=== PATIENT | male | born 1955 | race Caucasian/White ===

== ENCOUNTER 2016-11-16 09:49 | Inpatient (IN) | payer OTHER ==
[2016-11-16] MEDS ORDERED: PANTOPRAZOLE 40 MG/10 ML VIAL IVP STA (11:00)
[2016-11-16] MEDS ORDERED: AMPICILLIN-SULBACTAM 3 GM in SODIUM CHLORIDE 0.9% 100 ML IVPB STA (11:00)
[2016-11-16] MEDS ORDERED: SODIUM CHLORIDE 0.9% 1,000 ML IV STA ×2 (11:00)
--- NOTE | 2016-11-16 11:10 | ED ---
General Adult HPI - General Chief complaint: Abdominal Pain Stated complaint: Abdominal Pain Time Seen by Provider: 11/16/16 10:23 Source: patient, family, RN notes reviewed, old records reviewed Mode of arrival: EMS Limitations: no limitations - History of Present Illness Initial comments: This is a 61-year-old male ER for evaluation of bowel pain. [facility] of Cholecystitis This Compcare or Pancreatitis. Patient Is Brought to Emergency Room Transfer, This Time in No Acute Distress. Patient's Poor Strain Secondary to Inability to Speak Secondary to Stroke, History Obtained from Patient's Chart and Family Members. At This Time Patient's Pain Is Controlled. No Fevers. No Nausea Vomiting - Related Data Home Medications Medication Instructions Recorded Confirmed Aspirin 81 mg PO DAILY 11/16/16 11/16/16 Atorvastatin Calcium [Lipitor] 40 mg PO HS 11/16/16 11/16/16 Citalopram Hydrobromide [CeleXA] 10 mg PO DAILY 11/16/16 11/16/16 Clopidogrel Bisulfate [Plavix] 75 mg PO DAILY 11/16/16 11/16/16 Hydrochlorothiazide 25 mg PO DAILY 11/16/16 11/16/16 Metoprolol Succinate (ER) [Toprol 25 mg PO DAILY 11/16/16 11/16/16 Xl] levETIRAcetam [Keppra] 500 mg PO Q12HR 11/16/16 11/16/16 Allergies Allergy/AdvReac Type Severity Reaction Status Date / Time No Known Allergies Allergy Unverified 11/16/16 10:34 Review of Systems ROS Statement: Those systems with pertinent positive or pertinent negative responses have been documented in the HPI. ROS Other: All systems not noted in ROS Statement are negative. Past Medical History Past Medical History: CVA/TIA, Hypertension, Seizure Disorder History of Any Multi-Drug Resistant Organisms: None Reported Additional Past Surgical History / Comment(s): open heart surgery 12 years. stents Past Psychological History: No Psychological Hx Reported Smoking Status: Never smoker Past Alcohol Use History: None Reported Past Drug Use History: None Reported General Exam Limitations: no limitations General appearance: alert, in no apparent distress Head exam: Present: atraumatic, normocephalic, normal inspection Eye exam: Present: normal appearance, PERRL, EOMI. Absent: scleral icterus, conjunctival injection, periorbital swelling ENT exam: Present: normal exam, mucous membranes moist Neck exam: Present: normal inspection. Absent: tenderness, meningismus, lymphadenopathy Respiratory exam: Present: normal lung sounds bilaterally. Absent: respiratory distress, wheezes, rales, rhonchi, stridor Cardiovascular Exam: Present: regular rate, normal rhythm, normal heart sounds. Absent: systolic murmur, diastolic murmur, rubs, gallop, clicks GI/Abdominal exam: Present: soft, normal bowel sounds. Absent: distended, tenderness, guarding, rebound, rigid Extremities exam: Present: normal inspection, full ROM, normal capillary refill. Absent: tenderness, pedal edema, joint swelling, calf tenderness Back exam: Present: normal inspection Neurological exam: Present: alert, oriented X3, CN II-XII intact Psychiatric exam: Present: normal affect, normal mood Skin exam: Present: warm, dry, intact, normal color. Absent: rash Course Vital Signs 11/16/16 09:54 Temperature 98.0 F Pulse Rate 62 Respiratory 20 Rate Blood Pressure 172/121 O2 Sat by Pulse 100 Oximetry - Reevaluation(s) Reevaluation #1: 11/16/16 11:09 Going to patient's transfer paperwork, lab results and ultrasound Medical Decision Making - Medical Decision Making 61 male here for evaluation of pancreatitis complicated with cholecystitis, patient will be admitted for evaluation by surgery and treatment Disposition Clinical Impression: Abdominal pain, Acute cholecystitis, Pancreatitis Disposition: ADMITTED IP TO THIS [facility] Condition: Fair Referrals: Noel Garcia MD [Primary Care Provider] - 1-2 days
[2016-11-16 11:18] LABS: Basophils # (A) 0.1 k/uL (0-0.2); Basophils % (A) 1 %; CH 32.2; CHCM 34.4; Eosinophils # (A) 0.2 k/uL (0-0.7); Eosinophils % (A) 2 %; HCT 41.1 % (39.0-53.0); HDW 2.63; Luc # (Auto) 0.14; Luc % (Auto) 2; Lymphocytes % (A) 27 %; Monocytes # (A) 0.4 k/uL (0-1.0); Monocytes % (A) 6 %; Neutrophils # (A) 4.4 k/uL (1.3-7.7); Neutrophils % (A) 61 %; RBC 4.37 m/uL (4.30-5.90); RDW 13.8 % (11.5-15.5); WBC 7.2 k/uL (3.8-10.6); WBC (Perox) 7.32
[2016-11-16 11:25] LABS: Anion Gap 10 mmol/L; Blood Urea Nitrogen 22 mg/dL (9-20); Carbon Dioxide 29 mmol/L (22-30); Chloride 105 mmol/L (98-107); Glucose 91 mg/dL (74-99); Potassium 4.5 mmol/L (3.5-5.1); Sodium 144 mmol/L (137-145)
[2016-11-16 11:26] LABS: ALT 50 U/L (21-72); AST 27 U/L (17-59); Alkaline Phosphatase 95 U/L (38-126); Amylase 56 U/L (30-110); Calcium 9.1 mg/dL (8.4-10.2); Non-African American GFR(MDRD) >60 (>60 ml/min/1.73 sqM); Total Bilirubin 0.4 mg/dL (0.2-1.3); Total Protein 7.3 g/dL (6.3-8.2)
[2016-11-16 11:38] LABS: INR 1.1 (<1.1); Partial Thromboplastin Time 24.5 sec (22.0-30.0); Prothrombin Time 10.9 sec (9.0-12.0)
[2016-11-16 11:53] LABS: Creatine Kinase MB 0.8 ng/mL (0.0-2.4); Troponin I 0.012 ng/mL (0.000-0.034)
[2016-11-16] MEDS: MORPHINE SULFATE 4 MG/ML SYRINGE IV SCH ×3 (13:38→21:39)
[2016-11-16] MEDS: ONDANSETRON 4 MG/2 ML VIAL IVP SCH ×2 (13:38→18:53)
--- NOTE | 2016-11-16 13:58 | P.HPIM ---
History of Present Illness H&P Date: 11/16/16 Chief Complaint: Sudden onset epigastric pain 61-year-old gentleman who was a transfer to [facility] emergency room from [facility] patient was being seen in [facility] for an acute episode of sudden onset epigastric pain. Patient family is at the bedside indicated that the patient woke up around 4 in the morning indicating he was having pain in his upper abdomen. Patient is a phasic from a prior CVA that occurred in 2013. Patient's family stated that he kept pointing to his abdomen as to the reference point patient lives with his parents. The parents are at the bedside may indicate the patient has been fairly independent after having a stroke in 2013 which did result in the patient being aphasic with right side weakness. To their knowledge the patient has not had prior episodes of epigastric pain no change in bowel habits no nausea vomiting. Patient has no significant history of tobacco or alcohol abuse. Patient was seen in the emergency room at [place] had an ultrasound done that showed dilated gallbladder multiple gallstones no wall thickening. Sludge noted but there was no common bile duct dilatation.. The patient also had a CAT scan of the abdomen pelvis without contrast that showed questionable gallstones patient in the emergency room [place] was started on IV fluid the potassium which was 3.4 was being replaced it's noted reviewing the labs that were obtained in [place] lipase was elevated to 532 which currently it's down to 125 amylase 117 and the AST 30 ALT 40 alk phos 104 and the total bili 0.9. Currently the patient does not appear in any distress. When asking patient if he is having any pain patient nods his head no Patient indicates that since being admitted to [facility] patient has been pain-free no abdominal pain no chest pain no epigastric pain symptoms completely resolved Patient does give a history of eating a lot of fast fatty foods for convenience Patient does have a significant past medical history of coronary artery disease with an NH and coronary artery bypass grafting 12 years prior. Additionally patient has had a stroke in 2014 did result in the a phasic speech in the right arm weakness. Did note the patient is on Plavix according to the parents patient took no medications this morning but did take his medication yesterday including Plavix Addition the patient does give a history of a seizure disorder according to the family his last seizure was 4 months prior is on Keppra. Patient currently is resting comfortably in bed appears well-hydrated and nontoxic and appears in no acute distress Review of Systems Essentially unremarkable except as mentioned in the present illness Past Medical History Past Medical History: CVA/TIA, Hypertension, Seizure Disorder History of Any Multi-Drug Resistant Organisms: None Reported Additional Past Surgical History / Comment(s): open heart surgery 12 years. stents Past Psychological History: No Psychological Hx Reported Smoking Status: Never smoker Past Alcohol Use History: None Reported Past Drug Use History: None Reported - Past Family History Father Family Medical History: Hyperlipidemia, Hypertension, Osteoarthritis (OA) Additional Family Medical History / Comment(s): Father is 87yrs old. Mother Family Medical History: Asthma, Diabetes Mellitus, Hyperlipidemia Medications and Allergies Home Medications Medication Instructions Recorded Confirmed Type Aspirin 81 mg PO DAILY 11/16/16 11/16/16 History Atorvastatin Calcium [Lipitor] 40 mg PO HS 11/16/16 11/16/16 History Citalopram Hydrobromide [CeleXA] 10 mg PO DAILY 11/16/16 11/16/16 History Clopidogrel Bisulfate [Plavix] 75 mg PO DAILY 11/16/16 11/16/16 History Hydrochlorothiazide 25 mg PO DAILY 11/16/16 11/16/16 History Metoprolol Succinate (ER) [Toprol 25 mg PO DAILY 11/16/16 11/16/16 History Xl] levETIRAcetam [Keppra] 500 mg PO Q12HR 11/16/16 11/16/16 History Allergies Allergy/AdvReac Type Severity Reaction Status Date / Time No Known Allergies Allergy Unverified 11/16/16 10:34 Physical Exam Vitals: Vital Signs Pulse Resp BP Pulse Ox 11/16/16 11:22 60 20 129/67 99 GENERAL APPEARANCE: 61-year-old male patient is alert, oriented, 3 in no acute distress. Is aphasic nontoxic well-hydrated well-nourished VITAL SIGNS: Reviewed HEENT: Head is normocephalic and atraumatic. Pupils are equal and reactive. The nares are patent. Oropharynx is clear without lesions. NECK: Supple without lymphadenopathy. Traches midline. HEART: S1, S2. Regular rate and rhythm. Denying chest pain LUNGS: No crackles or wheezes are heard. On room air adequate air movement bilaterally no wheezing no cough no use of accessory muscles to breathe ABDOMEN: Soft, nontender, nondistended with good bowel sounds. No peritoneal signs. No palpable organomegaly or masses no facial grimacing with palpitation to the abdominal wall. EXTREMITIES: Normal skin color and turgor. No cyanosis, rash, ulceration, clubbing or edema. Radial pedal pulses are 2/4 bilaterally. 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 Skin no evidence of a skin rash Results CBC & Chem 7: 11/16/16 10:15 11/16/16 10:15 Assessment and Plan Plan: Impression Present on admission sudden onset of acute epigastric pain with elevated lipase and amylase Ultrasound of the abdomen dilated gallbladder multiple gallstones no wall thickening noted likely due to cholelithiasis Stroke in 2013 resulting in aphasia with chronic right hand weakness Known coronary artery disease with prior coronary artery bypass grafting 12 years prior History of a seizure disorder last seizure 4 months ago on Kera 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 Present on admission elevated lipase and amylase likely due to acute pancreatitis Prior to admission electrolyte abnormality hypokalemic Plan The repeat potassium 4.5 now after replacement remove potassium from the IV Repeat labs in the morning Hold Plavix and aspirin for now DVT and GI prophylaxis Further recommendations pending Resume home meds as appropriate Await cardiology eval currently pending Patient would be at a high risk for a surgical intervention given patient's cardiac history and stroke The above dictated assessment and findings were discussed with dr Mcdaniels Impression and the plan of care have been dictated as directed. Erna Oropeza nurse practitioner acting as a scribe for Enedelia
[2016-11-16] MEDS ORDERED: AMPICILLIN-SULBACTAM 3 GM in SODIUM CHLORIDE 0.9% 100 ML IVPB SCH (18:00)
[2016-11-16 18:17] LABS: Appearance,Urine Clear (Clear); Bilirubin,Urine Negative (Negative); Glucose,Urine (UA) Negative (Negative); Ketones,Urine Negative (Negative); Leukocyte Esterase,Urine Negative (Negative); Nitrite,Urine Negative (Negative); PH, Urine 5.5 (5.0-8.0); Protein,Urine Negative (Negative); Specific Gravity,Urine 1.026 (1.001-1.035); UA Billing (MACRO vs. MICRO) CHEM; Urobilinogen,Urine <2.0 mg/dL (<2.0)
--- NOTE | 2016-11-16 20:00 | P.GSHP ---
History of Present Illness H&P Date: 11/16/16 Chief Complaint: Gallstone pancreatitis Please see nurse practitioner note, Erna Oropeza for additional details. I had the opportunity discuss the patient's level of care with his mother. She reports that he often eat fatty and cheesy foods. Prior to presentation at [facility], he had no specific complaints to his mother. With his history of stroke with aphasia, additional history is obtained via medical records including the patient's family. At the time of his transfer to the [place], his abdominal pain is completely resolved. With his high cardiac risks, cardiology has been consult. At this time, Plavix and aspirin has been held. - Review of Systems Comment: CONSTITUTIONAL: No fever or chills. HEENT: No trouble with hearing or nosebleeds. No difficulty swallowing. He is aphasic. He wears glasses. LYMPHATIC: No lumps and bumps around the neck. ENDOCRINE: No thyroid disorders. No blood sugar glucose intolerance. RESPIRATORY: No pneumonia. No troubles with breathing or dyspnea on exertion. CARDIOVASCULAR: No recent chest pain, palpitations, or recent heart attacks. Previous history of heart attack. GASTROINTESTINAL: No heart burn, constipation or bright red blood per rectum. GENITOURINARY: No blood in urine or increased urinary frequency. MUSCULOSKELETAL: Occassional back pain, stiffness or joint arthritis. NEUROLOGIC: No numbness or tingling along the distal extremities. Has seizure disorders or headaches. History of stroke with aphasia. PSYCHIATRIC: No depression or suidical ideation. HEMATOLOGIC: Denies any abnormal bleeding or bruising. Past Medical History Past Medical History: CVA/TIA, Hypertension, Seizure Disorder Additional Past Medical History / Comment(s): 2013 CVA-able to speak very little , R arm weakness, minimal R leg weakness, bilateral caratid dx with bilateral stents, last seizure 4 months ago, Last Myocardial Infarction Date:: ?2003 History of Any Multi-Drug Resistant Organisms: None Reported Past Surgical History: Coronary Bypass/CABG, Tonsillectomy Additional Past Surgical History / Comment(s): open heart surgery 12 years. stents Past Anesthesia/Blood Transfusion Reactions: No Reported Reaction Past Psychological History: No Psychological Hx Reported Smoking Status: Never smoker Past Alcohol Use History: None Reported Additional Past Alcohol Use History / Comment(s): Pt started smoking as a teen and quit in 2013. Pt lives with his parents. He is independent. He drives. Past Drug Use History: None Reported - Past Family History Father Family Medical History: Hyperlipidemia, Hypertension, Osteoarthritis (OA) Additional Family Medical History / Comment(s): Father is 87yrs old. Mother Family Medical History: Asthma, Diabetes Mellitus, Hyperlipidemia Medications and Allergies Home Medications Medication Instructions Recorded Confirmed Type Aspirin 81 mg PO DAILY 11/16/16 11/16/16 History Atorvastatin Calcium [Lipitor] 40 mg PO HS 11/16/16 11/16/16 History Citalopram Hydrobromide [CeleXA] 10 mg PO DAILY 11/16/16 11/16/16 History Clopidogrel Bisulfate [Plavix] 75 mg PO DAILY 11/16/16 11/16/16 History Hydrochlorothiazide 25 mg PO DAILY 11/16/16 11/16/16 History Metoprolol Succinate (ER) [Toprol 25 mg PO DAILY 11/16/16 11/16/16 History Xl] levETIRAcetam [Keppra] 500 mg PO Q12HR 11/16/16 11/16/16 History Allergies Allergy/AdvReac Type Severity Reaction Status Date / Time No Known Allergies Allergy Unverified 11/16/16 10:34 Surgical - Exam Vital Signs Temp Pulse Resp BP Pulse Ox 98.0 F 62 20 172/121 100 11/16/16 09:54 11/16/16 09:54 11/16/16 09:54 11/16/16 09:54 11/16/16 09:54 GENERAL: Well developed and in no acute distress. Pleasant. HEENT: No sclera icterus. Extraocular movements grossly intact. Moist buccal mucosa. Head is atraumatic, normocephalic. Hears conversational speech. No nasal drainage. NECK: Supple without lymphadenopathy. No JV distention. CHEST: Non-labored respirations and equal bilateral excursions. CARDIOVASCULAR: Regular rate and rhythm. Palpable 2+ radial pulses. ABDOMEN: Soft, nontender. Nondistended. No abdominal incisions. MUSCULOSKELETAL: No clubbing, cyanosis or edema. NEUROLOGIC: No focal or lateralizing signs. He is aphasic. PSYCH: Appropriate affect. Alert and oriented to person, place and time. Results - Labs 11/17/16 10:31 11/17/16 10:31 - Imaging Additional studies: Outside images reviewed with ultrasound consistent with gallstones. CT of the abdomen and pelvis also reviewed without lesions along the pancreas. 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 As he is on Plavix and aspirin, surgical intervention with laparoscopic cholecystectomy will be delayed. 2. Recommend cardiology evaluation with personal history of stroke including heart attack. 3. Repeat chemistries. 4. Low-fat diet advised.
[2016-11-16] MEDS ORDERED: HYDROmorphone 1 MG/ML 1 ML SYRINGE IVP PRN (20:15)
[2016-11-16] MEDS ORDERED: METOCLOPRAMIDE 5 MG/ML 2 ML VIAL IVP PRN (20:16)
[2016-11-16] MEDS ORDERED: PANTOPRAZOLE 40 MG/10 ML VIAL IVP SCH (21:00)
[2016-11-16] MEDS: levETIRAcetam 500 MG TAB PO SCH (21:42)
[2016-11-16] MEDS: ATORVASTATIN 40 MG TAB PO SCH (21:44)
[2016-11-17] MEDS: CITALOPRAM HYDROBROMIDE 10 MG TAB PO SCH (08:34)
[2016-11-17] MEDS: HYDROCHLOROTHIAZIDE 25 MG TAB PO SCH ×2 (08:34→08:35)
[2016-11-17] MEDS: METOPROLOL SUCCINATE (ER) 25 MG TAB.ER.24H PO SCH ×2 (08:34→08:35)
[2016-11-17] MEDS: levETIRAcetam 500 MG TAB PO SCH ×2 (08:34→20:16)
--- NOTE | 2016-11-17 09:55 | P.PN ---
Subjective Principal diagnosis: Gallstone pancreatitis No abdominal pain, nausea, or vomiting. Patient communicates with hand gestures due to aphasia. He is pending cardiology consultation. He has a high risk stroke history as well. Objective - Vital Signs Vital signs: Vital Signs Temp 97.1 F L 11/17/16 07:00 Pulse 53 L 11/17/16 07:00 Resp 18 11/17/16 07:00 BP 98/54 11/17/16 07:00 Pulse Ox 97 11/17/16 07:00 Intake & Output 11/16/16 11/17/16 11/17/16 18:59 06:59 18:59 Intake Total 340 Balance 340 Intake: Oral 340 - Exam GENERAL: Well developed and in no acute distress. Pleasant. HEENT: No sclera icterus. Extraocular movements grossly intact. Moist buccal mucosa. Head is atraumatic, normocephalic. Hears conversational speech. No nasal drainage. NECK: Supple without lymphadenopathy. No JV distention. CHEST: Non-labored respirations and equal bilateral excursions. CARDIOVASCULAR: Regular rate and rhythm. Palpable 2+ radial pulses. ABDOMEN: Soft, nontender. Nondistended. MUSCULOSKELETAL: No clubbing, cyanosis or edema. NEUROLOGIC: No focal or lateralizing signs. He is aphasic. PSYCH: Appropriate affect. 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 Plan for cardiology. 2. Get carotid studies. 3. Plavix and Aspirin held. 4. 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
--- NOTE | 2016-11-17 10:42 | P.PN ---
Subjective 61-year-old gentleman being seen on rounds this morning is currently resting comfortably in bed. Patient is able to communicate with hand gestures due to aphasia when questioning patient patient is denying any abdominal pain denying chest pain denying shortness of breath. There's been no nausea vomiting. No abdominal pain since admission. Patient indicates he is fine a cardiology consultation is pending. Labs this morning pending Hospital course This is a 61-year-old gentleman who was transferred [facility] to [facility] to be evaluated for chief complaint of developing a sudden onset of epigastric pain. Patient reportedly woke up around 4:00 in the morning with the epigastric pain presented to [facility] emergency room noted to have an elevated lipase and amylase. Patient does have a significant past medical history of coronary artery disease and prior stroke resulting in aphasia. Patient was seen in [facility] recommendations were to transfer patient to the clinic in [place] for further workup at the time of the transfer patient was completely pain free the abdominal pain had resolved patient was denying chest pain no shortness breath no nausea vomiting. It's noted that the patient had received his Plavix and aspirin the day before Objective - Vital Signs Vital signs: Vital Signs Temp 97.1 F L 11/17/16 07:00 Pulse 53 L 11/17/16 07:00 Resp 18 11/17/16 07:00 BP 98/54 11/17/16 07:00 Pulse Ox 97 11/17/16 07:00 Intake & Output 11/16/16 11/17/16 11/17/16 18:59 06:59 18:59 Intake Total 340 Balance 340 Intake: Oral 340 - Exam Physical exam 61 year old gentleman appearing stated age resting comfortably in bed well- nourished nontoxic in no acute distress Lungs essentially clear adequate air movement on room air no cough noted heart S1-S2 audible regular no murmur noted Abdomen is soft not distended no facial grimacing with palpitation to the abdominal wall no nausea no vomiting no difficulty in urinating Extremities no pedal edema noted chronic right arm weakness - Labs CBC & Chem 7: 11/16/16 10:15 11/16/16 10:15 Labs: Microbiology - Last 24 Hours (Table) 11/16/16 14:30 Urine Culture - Preliminary Urine,Clean Catch Assessment and Plan Plan: Impression Present on admission sudden onset of acute epigastric pain with elevated lipase and amylase Ultrasound of the abdomen dilated gallbladder multiple gallstones no wall thickening noted likely due to cholelithiasis Stroke in 2013 resulting in aphasia with chronic right hand weakness Known coronary artery disease with prior coronary artery bypass grafting 12 years prior History of a seizure disorder last seizure 4 months ago on Keppra 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 Present on admission elevated lipase and amylase likely due to acute pancreatitis Prior to admission electrolyte abnormality hypokalemic Plan Repeat labs in the morning Hold Plavix and aspirin for now DVT and GI prophylaxis Further recommendations pending Resume home meds as appropriate Patient has had high risk given patient's stroke history and coronary artery disease Await cardiology eval currently pending The above dictated assessment and findings were discussed with dr Enedelia Roa and the plan of care have been dictated as directed. Erna Oropeza nurse practitioner acting as a scribe for Enedelia
[2016-11-17 11:02] LABS: Basophils % (A) 1 %; CH 31.4; CHCM 32.5; Eosinophils # (A) 0.2 k/uL (0-0.7); Eosinophils % (A) 4 %; HCT 40.3 % (39.0-53.0); Luc # (Auto) 0.17; Luc % (Auto) 3; Lymphocytes # (A) 1.7 k/uL (1.0-4.8); Lymphocytes % (A) 28 %; MCH 31.3 pg (25.0-35.0); MCHC 32.3 g/dL (31.0-37.0); Mean Platelet Volume 6.3; Monocytes # (A) 0.4 k/uL (0-1.0); Monocytes % (A) 6 %; Neutrophils # (A) 3.7 k/uL (1.3-7.7); Neutrophils % (A) 60 %; RBC 4.15 m/uL (4.30-5.90); RDW 13.8 % (11.5-15.5); WBC 6.1 k/uL (3.8-10.6)
[2016-11-17 11:29] LABS: ALT 30 U/L (21-72); AST 18 U/L (17-59); Alkaline Phosphatase 81 U/L (38-126); Anion Gap 11 mmol/L; Blood Urea Nitrogen 12 mg/dL (9-20); Calcium 8.8 mg/dL (8.4-10.2); Carbon Dioxide 24 mmol/L (22-30); Chloride 109 mmol/L (98-107); Glucose 96 mg/dL (74-99); Non-African American GFR(MDRD) >60 (>60 ml/min/1.73 sqM); Potassium 3.4 mmol/L (3.5-5.1); Sodium 144 mmol/L (137-145); Total Bilirubin 0.6 mg/dL (0.2-1.3); Total Protein 6.3 g/dL (6.3-8.2)
--- NOTE | 2016-11-17 11:29 | P.CRDCN ---
History of Present Illness Consult date: 11/17/16 Chief complaint: Epigastric discomfort History of present illness: This is a pleasant 61-year-old gentleman with a past medical history significant for coronary artery disease and prior CABG with unknown details at this point and the patient does not follow up with any weight and balance control agent, stroke with residual right sided weakness as well as aphasia, hypertension, and dyslipidemia, was brought from [facility] to [facility] with epigastric discomfort. Apparently the patient was in his usual state of health until about a few days ago when he started experiencing sudden onset of epigastric discomfort. He denies having any chest pain or discomfort and denies having any shortness of breath. Please note that the patient is nonverbal but I was able to communicate with him with a question where he can answer yes or no for it. We get involved in the care of the patient because of his prior cardiac history of coronary artery disease. Hemodynamically the patient continues to be in marginally low blood pressure. He was receiving metoprolol which was held. He underwent a computed tomography scan of the abdomen and pelvis and that showed a gallstone. Gen. surgery consult was placed and the patient was seen and evaluated. There is no plan for any surgery at this point. I will obtain 12-lead EKG, obtain an echocardiogram was Doppler, continue holding the metoprolol at this point, and continue following up with the patient. Past Medical History Past Medical History: CVA/TIA, Hypertension, Seizure Disorder Additional Past Medical History / Comment(s): 2013 CVA-able to speak very little , R arm weakness, minimal R leg weakness, bilateral caratid dx with bilateral stents, last seizure 4 months ago, Last Myocardial Infarction Date:: ?2003 History of Any Multi-Drug Resistant Organisms: None Reported Past Surgical History: Coronary Bypass/CABG, Tonsillectomy Additional Past Surgical History / Comment(s): open heart surgery 12 years. stents Past Anesthesia/Blood Transfusion Reactions: No Reported Reaction Past Psychological History: No Psychological Hx Reported Smoking Status: Never smoker Past Alcohol Use History: None Reported Additional Past Alcohol Use History / Comment(s): Pt started smoking as a teen and quit in 2013. Pt lives with his parents. He is independent. He drives. Past Drug Use History: None Reported - Past Family History Father Family Medical History: Hyperlipidemia, Hypertension, Osteoarthritis (OA) Additional Family Medical History / Comment(s): Father is 87yrs old. Mother Family Medical History: Asthma, Diabetes Mellitus, Hyperlipidemia Medications and Allergies Home Medications Medication Instructions Recorded Confirmed Type Aspirin 81 mg PO DAILY 11/16/16 11/16/16 History Atorvastatin Calcium [Lipitor] 40 mg PO HS 11/16/16 11/16/16 History Citalopram Hydrobromide [CeleXA] 10 mg PO DAILY 11/16/16 11/16/16 History Clopidogrel Bisulfate [Plavix] 75 mg PO DAILY 11/16/16 11/16/16 History Hydrochlorothiazide 25 mg PO DAILY 11/16/16 11/16/16 History Metoprolol Succinate (ER) [Toprol 25 mg PO DAILY 11/16/16 11/16/16 History Xl] levETIRAcetam [Keppra] 500 mg PO Q12HR 11/16/16 11/16/16 History Allergies Allergy/AdvReac Type Severity Reaction Status Date / Time No Known Allergies Allergy Unverified 11/16/16 10:34 Physical Exam Vitals: Vital Signs Temp Pulse Resp BP Pulse Ox 11/17/16 07:00 97.1 F L 53 L 18 98/54 97 11/16/16 22:20 97.1 F L 50 L 18 103/55 98 11/16/16 13:00 97.3 F L 58 L 18 144/74 98 Intake and Output 11/16/16 11/17/16 11/17/16 22:59 06:59 14:59 Intake Total 240 100 Balance 240 100 Intake: Oral 240 100 - Constitutional General appearance: no acute distress - Respiratory Respiratory: bilateral: CTA - Cardiovascular Rhythm: regular Heart sounds: normal: S1, S2 Results 11/17/16 10:31 11/16/16 10:15 Cardiac Enzymes 11/16/16 11/16/16 Range/Units 15:52 22:17 Troponin I 0.015 0.020 (0.000-0.034) ng/mL CBC 11/17/16 Range/Units 10:31 WBC 6.1 (3.8-10.6) k/uL RBC 4.15 L (4.30-5.90) m/uL Hgb 13.0 (13.0-17.5) gm/dL Hct 40.3 (39.0-53.0) % Plt Count 199 (150-450) k/uL Current Medications Generic Name Dose Route Start Last Admin Trade Name Freq PRN Reason Stop Dose Admin Atorvastatin Calcium 40 mg 11/16/16 21:00 11/16/16 21:44 Lipitor PO 40 mg HS KOMAL Administration Citalopram Hydrobromide 10 mg 11/17/16 09:00 11/17/16 08:34 Celexa PO 10 mg DAILY KOMAL Administration Hydrochlorothiazide 25 mg 11/17/16 09:00 11/17/16 08:35 Hydrodiuril PO Not Given DAILY KOMAL Hydromorphone HCl 1 mg 11/16/16 20:15 Dilaudid IVP Q4HR PRN Pain Levetiracetam 500 mg 11/16/16 21:00 11/17/16 08:34 Keppra PO 500 mg Q12HR KOMAL Administration Metoclopramide HCl 5 mg 11/16/16 20:16 Reglan IVP Q6HR PRN Nausea And Vomiting Metoprolol Succinate 25 mg 11/17/16 09:00 11/17/16 08:35 Toprol Xl PO Not Given DAILY KOMAL Intake and Output 11/16/16 11/17/16 11/17/16 22:59 06:59 14:59 Intake Total 240 100 Balance 240 100 Intake: Oral 240 100 11/17/16 10:31 Assessment and Plan Plan: Assessment #1 epigastric discomfort #2 possible gallstone #3 CAD with prior CABG #4 history of stroke Plan #1 continue holding the metoprolol in view of the marginally low blood pressure #2 obtain an echocardiogram was Doppler #3 obtain 12-lead EKG
[2016-11-17 13:44] VITALS: BMI 29.8
--- NOTE | 2016-11-17 14:41 | US ---
EXAMINATION TYPE: US carotid duplex BILAT DATE OF EXAM: 11/17/2016 2:18 PM COMPARISON: NONE CLINICAL HISTORY: 61-year-old male with history of stroke. Aphasic, left carotid endarterectomy. TECHNIQUE: Carotid duplex ultrasound. In direct Doppler criteria was utilized. FINDINGS: Almanza scale images show mild atherosclerotic change at both bifurcations. EXAM MEASUREMENTS: RIGHT: Peak Systolic Velocity (PSV) cm/sec ----- Right CCA: 62.5 ----- Right ICA: 84.5 ----- Right ECA: 114.5 ICA/CCA ratio: 1.4 RIGHT: End Diastole cm/sec ----- Right CCA: 15.3 ----- Right ICA: 27.4 ----- Right ECA: 12.8 LEFT: Peak Systolic Velocity (PSV) cm/sec ----- Left CCA: 78.8 ----- Left ICA: 72.3 ----- Left ECA: 294.4 ICA/CCA ratio: 0.9 LEFT: End Diastole cm/sec ----- Left CCA: 15.4 ----- Left ICA: 16.7 ----- Left ECA: 31.3 VERTEBRALS (direction of flow): Right Vertebral: Antegrade Left Vertebral: Antegrade. Diminished velocities left vertebral artery. IMPRESSION: 1. Mild atherosclerotic change at both bifurcations. No hemodynamically significant stenosis apprecia jordan within either internal carotid artery. 2. Antegrade flow in the vertebral arteries though with diminished velocities on the left. Findings c ould reflect a proximal left vertebral artery stenosis. Criteria for Assigning % of Stenosis / Diameter reduction (Estimation based on the indirect measurements of the internal carotid artery velocities (ICA PSV). 1. Normal (no stenosis)=ICA PSV < 125 cm/s: ratio < 2.0: ICA EDV<40 cm/s. 2. Less than 50% stenosis=ICA PSV < 125 cm/s: ratio < 2.0: ICA EDV<40 cm/s. 3. 50 to 69% stenosis=ICA PSV of 125 to 230 cm/s: ration 2.0 ? 4.0: ICA EDV 40-100 cm/s. 4. Greater than 70% stenosis to near occlusion= ICA PSV > 230 cm/s: ratio > 4.0: ICA EDV > 100 cm/s. 5. Near occlusion= ICA PSV velocities may be low or undetectable: variable ratio and ICA EDV. 6. Total occlusion=unable to detect flow.
[2016-11-17] MEDS: POTASSIUM CHLORIDE ER 20 MEQ TAB.ER PO SCH ×2 (15:36→17:14)
--- NOTE | 2016-11-17 20:06 | P.PN ---
Progress Note - Text Patient seen and reevaluated this evening. He's tolerating diet. He has been seen by the permastone applicator. I spoke to his mother regarding updates of care. As the patient will complete his 5 days off platelet therapy by Wednesday, may consider surgical intervention on Wednesday for laparoscopic cholecystectomy when cleared by cardiology.
[2016-11-17] MEDS: ATORVASTATIN 40 MG TAB PO SCH (20:16)
[2016-11-18] MEDS: levETIRAcetam 500 MG TAB PO SCH ×2 (08:15→20:35)
[2016-11-18] MEDS: CITALOPRAM HYDROBROMIDE 10 MG TAB PO SCH (08:15)
[2016-11-18] MEDS: HYDROCHLOROTHIAZIDE 25 MG TAB PO SCH (08:15)
[2016-11-18] MEDS: METOPROLOL SUCCINATE (ER) 25 MG TAB.ER.24H PO SCH (08:16)
--- NOTE | 2016-11-18 10:08 | ECHOF ---
Referral Reason:CAD MEASUREMENTS -------- HEIGHT: 182.9 cm WEIGHT: 99.8 kg BP: 98/54 RVIDd: 3.3 cm (< 3.3) IVSd: 1.1 cm (0.6 - 1.1) LVIDd: 4.2 cm (3.9 - 5.3) LVPWd: 1.2 cm (0.6 - 1.1) IVSs: 1.7 cm LVIDs: 3.2 cm LVPWs: 1.9 cm LA Diam: 4.1 cm (2.7 - 3.8) LAESV Index (A-L): 27.81 ml/m Ao Diam: 3.6 cm (2.0 - 3.7) AV Cusp: 2.1 cm (1.5 - 2.6) LA Diam: 4.3 cm (2.7 - 3.8) MV EXCURSION: 21.475 mm (> 18.000) MV EF SLOPE: 115 mm/s (70 - 150) EPSS: 0.3 cm MV E Tony: 0.76 m/s MV DecT: 281 ms MV A Tony: 0.72 m/s MV E/A Ratio: 1.05 RAP: 5.00 mmHg RVSP: 33.35 mmHg FINDINGS -------- Resting bradycardia (HR<60bpm). This was a technically adequate study. There is borderline concentric left ventricular hypertrophy. Overall left ventricular systolic function is mild-moderately impaired with, an EF between 40 - 45 %. Basal inferior LV wall motion is hypokinetic. Basal inferoseptal LV wall motion is hypokinetic. Apical septum LV wall motion is hypokinetic. The right ventricle is mildly enlarged. Normal LA size by volume 22+/-6 ml/m2. The right atrium is normal in size. 1.5mg of Definity was utilized for enhancement of images Aortic valve is trileaflet and is mildly thickened. Mild mitral annular calcification present. There is trace mitral regurgitation. Mild tricuspid regurgitation present. Right ventricular systolic pressure is normal at < 35 mmHg. The pulmonic valve was not well visualized. The aortic root size is normal. Normal inferior vena cava with normal inspiratory collapse consistent with estimated right atrial pressure of 5 mmHg. Echo free space may represent effusion or a pericardial fat pad. CONCLUSIONS -------- 1. Resting bradycardia (HR<60bpm). 2. The right atrium is normal in size. 3. 1.5mg of Definity was utilized for enhancement of images 4. Aortic valve is trileaflet and is mildly thickened. 5. Mild mitral annular calcification present. 6. There is trace mitral regurgitation. 7. Mild tricuspid regurgitation present. 8. Right ventricular systolic pressure is normal at < 35 mmHg. 9. The pulmonic valve was not well visualized. 10. The aortic root size is normal. 11. Echo free space may represent effusion or a pericardial fat pad. 12. This was a technically adequate study. 13. There is borderline concentric left ventricular hypertrophy. 14. Overall left ventricular systolic function is mild-moderately impaired with, an EF between 40 - 45 %. 15. Basal inferior LV wall motion is hypokinetic. 16. Basal inferoseptal LV wall motion is hypokinetic. 17. Apical septum LV wall motion is hypokinetic. 18. The right ventricle is mildly enlarged. 19. Normal LA size by volume 22+/-6 ml/m2. ASSOCIATE PROFESSOR: Margie Milan RDCS
--- NOTE | 2016-11-18 10:49 | P.PN ---
Subjective A 61-year-old gentleman being seen on rounds this morning. Currently sitting up on the edge of the bed. Appears in no acute distress. Is pleasant cooperative and alert able to communicate by writing or gesturing. Patient is aphasic from a prior CVA. Did note that slab inspector did see the patient for cardiac clearance in a patient who has a known history of coronary artery disease prior coronary artery bypass grafting. Patient initially was transferred from [facility] to [facility] with epigastric pain being seen by surgical service. Surgical service is waiting for cardiology clearance for tentative scheduled this Wednesday for a lap cholecystectomy while off aspirin and Plavix Recommendations by cardiology or to do an echocardiogram obtain a 12-lead EKG and hold the beta jen in view of the low systolic blood pressure and monitor the response she has been off Plavix and aspirin since WednesdayNovember 16 the echocardiogram left ventricular systolic function mild to moderately impaired with an EF between 40 and 45%. No valvular heart disease currently the patient is on Toprol 25 mg daily Objective - Vital Signs Vital signs: Vital Signs Temp 97.6 F 11/18/16 07:00 Pulse 66 11/18/16 07:00 Resp 16 11/18/16 07:00 BP 122/70 11/18/16 07:00 Pulse Ox 95 11/18/16 07:00 Intake & Output 11/17/16 11/18/16 11/18/16 18:59 06:59 18:59 Intake Total 480 Balance 480 Weight 99.79 kg Intake: Oral 480 Other: # Voids 3 1 - Exam Physical exam 61-year-old male sitting up on the edge of the bed pleasant cooperative oriented 3 appears in no acute distress Lungs essentially clear adequate air movement Heart S1-S2 audible and regular heart rate in the 50s to 60s denying chest pain when questioning Abdomen soft no reports of nausea vomiting no frequent stooling no difficulty in urinating denying abdominal pain nondistended Extremities no edema noted upper extremity right side weakness - Labs CBC & Chem 7: 11/17/16 10:31 11/17/16 10:31 Labs: Abnormal Lab Results - Last 24 Hours (Table) 11/17/16 11/17/16 Range/Units 10:31 10:31 RBC 4.15 L (4.30-5.90) m/uL Potassium 3.4 L (3.5-5.1) mmol/L Chloride 109 H (98-107) mmol/L Albumin 3.2 L (3.5-5.0) g/dL Microbiology - Last 24 Hours (Table) 11/16/16 14:30 Urine Culture - Final Urine,Clean Catch Assessment and Plan Plan: Impression Present on admission sudden onset of acute epigastric pain with elevated lipase and amylase Ultrasound of the abdomen dilated gallbladder multiple gallstones no wall thickening noted likely due to cholelithiasis Stroke in 2013 resulting in aphasia with chronic right hand weakness Known coronary artery disease with prior coronary artery bypass grafting 12 years prior History of a seizure disorder last seizure 4 months ago on Keppra 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 Present on admission elevated lipase and amylase likely due to acute pancreatitis Prior to admission electrolyte abnormality hypokalemic Bilateral carotid Doppler studies no hemodynamic significant stenosis appreciated within either internal carotid artery Chronic systolic heart failure EF 40-45% by echocardiogram November 17 compensated Plan Per cardiology's recommendations hold the beta jen due to the marginal blood pressure defer to cardiology Await surgical clearance by cardiology tentatively scheduled for a lap cholecystectomy this coming Wednesday if no cardiac issues Hold Plavix and aspirin for now DVT and GI prophylaxis Further recommendations pending Patient would be at a high risk for a surgical intervention given patient's cardiac history and stroke The above dictated assessment and findings were discussed with dr Enedelia Roa and the plan of care have been dictated as directed. Erna Oropeza nurse practitioner acting as a scribe for Enedelia
[2016-11-18] MEDS: POTASSIUM CHLORIDE ER 20 MEQ TAB.ER PO SCH ×2 (12:01→13:06)
--- NOTE | 2016-11-18 12:01 | P.PN ---
Subjective Principal diagnosis: CAD This is a pleasant 61-year-old gentleman with a past medical history significant for coronary artery disease and prior CABG with unknown details at this point and the patient does not follow up with any clinical research tech, stroke with residual right sided weakness as well as aphasia, hypertension, and dyslipidemia, was brought from [facility] to [facility] with epigastric discomfort. Apparently the patient was in his usual state of health until about a few days ago when he started experiencing sudden onset of epigastric discomfort. He denies having any chest pain or discomfort and denies having any shortness of breath. Please note that the patient is nonverbal but I was able to communicate with him with a question where he can answer yes or no for it. We get involved in the care of the patient because of his prior cardiac history of coronary artery disease. Hemodynamically the patient continues to be in marginally low blood pressure. He was receiving metoprolol which was held. He underwent a computed tomography scan of the abdomen and pelvis and that showed a gallstone. Gen. surgery consult was placed and the patient was seen and evaluated. The plan is a patient going to have surgery in the next few days and possibly this coming Wednesday. From the cardiac vascular standpoint overview, the patient can proceed with the surgery. I will continue the metoprolol and statin. Would restart him back on aspirin after the surgery. Objective - Vital Signs Vital signs: Vital Signs Temp 97.6 F 11/18/16 07:00 Pulse 53 L 11/18/16 10:46 Resp 16 11/18/16 07:00 BP 121/64 11/18/16 10:46 Pulse Ox 95 11/18/16 07:00 Intake & Output 11/17/16 11/18/16 11/18/16 18:59 06:59 18:59 Intake Total 480 Balance 480 Weight 99.79 kg Intake: Oral 480 Other: # Voids 3 1 - Constitutional General appearance: Present: no acute distress - Respiratory Respiratory: bilateral: CTA - Cardiovascular Rhythm: regular Heart sounds: normal: S1, S2 - Labs CBC & Chem 7: 11/17/16 10:31 11/17/16 10:31 Labs: Microbiology - Last 24 Hours (Table) 11/16/16 14:30 Urine Culture - Final Urine,Clean Catch Assessment and Plan Plan: Assessment #1 epigastric discomfort #2 possible gallstone #3 CAD with prior CABG #4 history of stroke Plan #1 continue the current medical treatment was metoprolol and statin #2 the patient can proceed with the surgery
--- NOTE | 2016-11-18 18:15 | P.PN ---
Progress Note - Text Patient reevaluated this evening. Cardiac clearance approved. We'll proceed with laparoscopic cholecystectomy on Wednesday. All of his questions were answered. Overall patient is stable.
[2016-11-18] MEDS: ATORVASTATIN 40 MG TAB PO SCH (20:35)
[2016-11-19] MEDS: CITALOPRAM HYDROBROMIDE 10 MG TAB PO SCH (08:03)
[2016-11-19] MEDS: levETIRAcetam 500 MG TAB PO SCH ×2 (08:03→21:31)
[2016-11-19] MEDS: HYDROCHLOROTHIAZIDE 25 MG TAB PO SCH (08:03)
[2016-11-19] MEDS: METOPROLOL SUCCINATE (ER) 25 MG TAB.ER.24H PO SCH (08:04)
--- NOTE | 2016-11-19 09:40 | P.PN ---
Subjective 61-year-old male resting comfortably in bed. Arabella cooperative alert oriented 3. Patient is aware of the plan of care. Patient was to be scheduled tomorrow for a laparoscopic cholecystectomy. Patient continues to deny chest pain no shortness of breath denying abdominal pain cardiology's recommendations noted appreciated and reviewed cardiology indicate the patient can proceed with surgery they would continue the current medical treatment continue with the beta jen and the statin. The echocardiogram results left ventricular systolic function is mild to moderately impaired with an EF between 40 and 45% Objective - Vital Signs Vital signs: Vital Signs Temp 97.8 F 11/19/16 07:00 Pulse 67 11/19/16 07:00 Resp 16 11/19/16 07:00 BP 124/62 11/19/16 07:00 Pulse Ox 96 11/19/16 07:00 Intake & Output 11/18/16 11/19/16 11/19/16 18:59 06:59 18:59 Intake Total 240 200 Balance 240 200 Intake: Oral 240 200 Other: Voiding Method Toilet # Voids 2 1 # Bowel Movements 0 - Exam Physical exam Arabella 61-year-old gentleman resting in bed does not appear in any acute distress from a prior CVA asphasic Lungs essentially clear adequate air movement on room air Heart S1-S2 audible and regular Abdomen soft nontender no nausea no vomiting no frequent stooling denying abdominal pain Extremities right upper extremity side weakness no edema noted - Labs CBC & Chem 7: 11/17/16 10:31 11/17/16 10:31 Assessment and Plan Plan: Impression Present on admission sudden onset of acute epigastric pain with elevated lipase and amylase Ultrasound of the abdomen dilated gallbladder multiple gallstones no wall thickening noted likely due to cholelithiasis Stroke in 2013 resulting in aphasia with chronic right hand weakness Known coronary artery disease with prior coronary artery bypass grafting 12 years prior History of a seizure disorder last seizure 4 months ago on Keppra 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 Present on admission elevated lipase and amylase likely due to acute pancreatitis Prior to admission electrolyte abnormality hypokalemic Bilateral carotid Doppler studies no hemodynamic significant stenosis appreciated within either internal carotid artery Chronic systolic heart failure EF 40-45% by echocardiogram November 17 compensated Plan Per cardiology's recommendations okay to proceed with surgery as scheduled on November 20 lap cholecystectomy Per cardiology continue with Toprol-XL 25 mg daily and Lipitor 40 mg daily When appropriate Plavix will be restarted currently on hold for planned surgical procedure Hold Plavix and aspirin for now DVT and GI prophylaxis Further recommendations pending Patient and mother has been updated on the plan of care by the surgeon Patient would be at a high risk for a surgical intervention given patient's cardiac history and stroke The above dictated assessment and findings were discussed with dr Enedelia Roa and the plan of care have been dictated as directed. Erna Oropeza nurse practitioner acting as a scribe for Enedelia
--- NOTE | 2016-11-19 09:52 | P.PN ---
Subjective Principal diagnosis: CAD This is a pleasant 61-year-old gentleman with a past medical history significant for coronary artery disease and prior CABG with unknown details at this point and the patient does not follow up with any blood bank custodian, stroke with residual right sided weakness as well as aphasia, hypertension, and dyslipidemia, was brought from [facility] to [facility] with epigastric discomfort. Apparently the patient was in his usual state of health until about a few days ago when he started experiencing sudden onset of epigastric discomfort. He denies having any chest pain or discomfort and denies having any shortness of breath. Please note that the patient is nonverbal but I was able to communicate with him with a question where he can answer yes or no for it. We get involved in the care of the patient because of his prior cardiac history of coronary artery disease. Hemodynamically the patient continues to be in marginally low blood pressure. He was receiving metoprolol which was held. He underwent a computed tomography scan of the abdomen and pelvis and that showed a gallstone. Gen. surgery consult was placed and the patient was seen and evaluated. The plan is a patient going to have surgery tomorrow. From the cardiac vascular standpoint overview, the patient can proceed with the surgery. I will continue the metoprolol and statin. Would restart him back on aspirin after the surgery. Objective - Vital Signs Vital signs: Vital Signs Temp 97.8 F 11/19/16 07:00 Pulse 67 11/19/16 07:00 Resp 16 11/19/16 07:00 BP 124/62 11/19/16 07:00 Pulse Ox 96 11/19/16 07:00 Intake & Output 11/18/16 11/19/16 11/19/16 18:59 06:59 18:59 Intake Total 240 200 Balance 240 200 Intake: Oral 240 200 Other: Voiding Method Toilet # Voids 2 1 # Bowel Movements 0 - Constitutional General appearance: Present: no acute distress - Respiratory Respiratory: bilateral: CTA - Cardiovascular Rhythm: regular Heart sounds: normal: S1, S2 - Labs CBC & Chem 7: 11/17/16 10:31 11/17/16 10:31 Assessment and Plan Plan: Assessment #1 epigastric discomfort #2 possible gallstone #3 CAD with prior CABG #4 history of stroke Plan #1 continue the current medical treatment was metoprolol and statin #2 the patient can proceed with the surgery
[2016-11-19] MEDS: ATORVASTATIN 40 MG TAB PO SCH (21:31)
[2016-11-20] MEDS ORDERED: SCOPOLAMINE 1.5MG/72HR PATCH TRANSDERM ONE (05:52)
[2016-11-20] MEDS ORDERED: LACTATED RINGERS 1,000 ML IV SCH (05:52)
[2016-11-20] MEDS ORDERED: DEXAMETHASONE SOD PHOSPHATE 10 MG/ML 1 ML VIAL IV ONE (05:52)
[2016-11-20] MEDS ORDERED: MIDAZOLAM 2 MG/2 ML VIAL IV PRN (05:52)
[2016-11-20 05:55] VITALS: RESP 16
[2016-11-20] MEDS: ONDANSETRON 4 MG/2 ML VIAL IVP ONE ×2 (06:39→09:05)
[2016-11-20] MEDS ORDERED: BUPIVACAIN-EPI 0.25%-1:200,000 30 ML VIAL SQ ONE ×2 (07:17→07:56)
[2016-11-20] MEDS ORDERED: NEOSTIGMINE 1 MG/ML 10 ML VIAL ONE (07:28)
[2016-11-20] MEDS ORDERED: MIDAZOLAM 2 MG/2 ML VIAL ONE (07:28)
[2016-11-20] MEDS ORDERED: SUCCINYLCHOLINE CHLORIDE 100 MG/5 ML SYR IV ONE (07:28)
[2016-11-20] MEDS ORDERED: ETOMIDATE 2 MG/ML 10 ML VIAL ONE (07:28)
[2016-11-20] MEDS ORDERED: GLYCOPYRROLATE 0.2 MG/ML 2 ML VIAL ONE (07:28)
[2016-11-20] MEDS ORDERED: PHENYLEPHRINE-0.9% NACL SYG 1 MG/10 ML SYRINGE ONE (07:28)
[2016-11-20] MEDS ORDERED: ePHEDrine 50 MG/ML 1 ML AMP ONE (07:28)
[2016-11-20] MEDS ORDERED: fentaNYL (PF) 50 MCG/ML 2 ML AMP ONE (07:28)
[2016-11-20] MEDS ORDERED: LIDOCAINE 1% INJ 10MG/ML (20 ML MDV) ONE (07:28)
[2016-11-20] MEDS ORDERED: ROCURONIUM BROMIDE 10 MG/ML 10 ML VIAL IV ONE (07:28)
[2016-11-20] MEDS ORDERED: HEPARIN SODIUM,PORCINE 5,000 UNIT/ML 1 ML VIAL SQ ONE (07:30)
--- NOTE | 2016-11-20 07:51 | P.HPADDEND ---
H&P Addendum H&P Addendum Date: 11/20/16 Patient to proceed with cholecystectomy today.
[2016-11-20] MEDS ORDERED: ACETAMINOPHEN IV (For NPO) 1,000 MG in EMPTY BAG 1 BAG IVPB ONE ×2 (08:00→10:00)
[2016-11-20] MEDS ORDERED: ceFAZolin 2 GM in SODIUM CHLORIDE 0.9% 100 ML IVPB ONE ×2 (08:00→11:15)
[2016-11-20] MEDS ORDERED: NALOXONE 0.4 MG/ML 1 ML VIAL IV PRN (08:41)
[2016-11-20] MEDS ORDERED: HYDROcodone/APAP 5-325MG 1 EACH TAB PO PRN (08:41)
--- NOTE | 2016-11-20 08:41 | P.OP ---
Date of Procedure: 11/20/16 Description of Procedure: SURGEON: JEO DIEGO MD REGULATORY LAW SPECIALIST: None. PREOPERATIVE DIAGNOSES: 1. Gallstone pancreatitis 2. History of stroke with sequelae of the fascia. 3. Carotid artery stenosis. 4. Coronary artery disease status post coronary artery bypass grafting. 5. Hypertensive cardiomyopathy. POSTOPERATIVE DIAGNOSES: 1. Gallstone pancreatitis 2. History of stroke with sequelae of the fascia. 3. Carotid artery stenosis. 4. Coronary artery disease status post coronary artery bypass grafting. 5. Hypertensive cardiomyopathy. OPERATION: Laparoscopic cholecystectomy ANESTHESIA: General with 30 mL 0.25% Marcaine with epinephrine. ESTIMATED BLOOD LOSS: 5 mL. SPECIMENS REMOVED: Gallbladder. COMPLICATIONS: None. INDICATIONS: The patient is a 61-year-old male who presents with gallstone pancreatitis. Surgical intervention with a laparoscopic cholecystectomy was described at length including injury to the biliary tree, bleeding, infection, need for further surgery. Informed consent was obtained. DESCRIPTION OF THE PROCEDURE: The patient was brought to the operating room, laid in supine position. After general induction, the abdomen was prepped and draped in a standard sterile fashion. Prior to incision, a timeout protocol was confirmed with surgical team regarding patient's name, procedure to be performed including preoperative medications for which he had received heparin 5000 units subcutaneously as well as bilateral SCDs for DVT prophylaxis. A transverse 5 mm incision was made above the umbilicus and off to the right of the midline. Please note the skin was localized prior to incision. A 0 degree 5-mm laparoscopic trocar entry was performed and entered into the peritoneal cavity. Diagnostic laparoscopy confirmed no injury to bowel, viscera or mesentery. Along the lower abdomen, bilateral small direct hernias of less than 1 cm identified. Additionally sigmoid diverticulosis without diverticulitis was identified. The liver serosa was completely unremarkable. Next, two 5 mm trocars were placed along the right costal margin followed by a 11 mm port at the left upper quadrant. The patient was placed in steep reverse Trendelenburg position with the right side up. The gallbladder fundus was retracted over the dome of the liver. Initial attention was brought to the infundibulum which was gently retracted in the inferior lateral approach. Using a Kittner, the cystic duct including the cystic artery was carefully skeletonized. Using a large clip stone rougher 2 clips were placed proximally, and 2 clip was placed distally along the cystic duct and then cut. Again care was taken to avoid any injury to the biliary tree as the common bile duct was clearly visualized during this portion of dissection. Next, the cystic artery was clipped twice proximally, once distally and then cauterized. The cystic structures were divided using a Sonicision. Electro-Bovie cautery was used to remove the gallbladder from the hepatic fossa with decompression of the gallbladder. Hemostasis was checked and found to be adequate. The abdomen was irrigated using 2 L of normal saline until the aspirant was clear. The gallbladder was removed from the abdominal cavity using an Endo Catch bag and passed off for further pathological analysis. All instruments and pneumoperitoneum were removed from the abdominal cavity. The fascial defect was less than 8 mm for the 11-mm port site. The rest of incisions were reapproximated using 4-0 Monocryl in an interrupted subcuticular fashion. A total of 30 mL of 0.25% Marcaine with epinephrine was infiltrated to all wounds for postop analgesia. Dermabond was applied to the skin. At the end of the procedure, needle, sponge, and instrument count was verified correct by surgical nurse practitioner. The patient had tolerated the procedure well and was taken to postanesthesia care unit in stable condition. Intraoperative films were discussed and reviewed with the patient's family who were pleased with the level of care. FINDINGS: 1. Chronic cholecystitis. 2. Unremarkable liver surface. 3. Bilateral less than 1 cm direct inguinal hernia. 4. Sigmoid diverticulosis without diverticulitis.
--- NOTE | 2016-11-20 08:54 | P.PN ---
Progress Note - Text Patient's mother notified. Intraoperative findings described. Her questions were answered regarding his pancreatitis which is now resolved. Discharge instructions were also reviewed.
[2016-11-20] MEDS ORDERED: PANTOPRAZOLE 40 MG/10 ML VIAL IV SCH (09:00)
[2016-11-20] MEDS: HYDROmorphone 1 MG/ML 1 ML SYRINGE IVP ONE ×2 (09:05→09:12)
[2016-11-20 10:54] VITALS: BP 120/58; PULSE 56; TEMP 97.5
[2016-11-20] MEDS: levETIRAcetam 500 MG TAB PO SCH (11:06)
[2016-11-20] MEDS: HYDROCHLOROTHIAZIDE 25 MG TAB PO SCH (11:06)
[2016-11-20] MEDS: CITALOPRAM HYDROBROMIDE 10 MG TAB PO SCH (11:06)
[2016-11-20] MEDS: METOPROLOL SUCCINATE (ER) 25 MG TAB.ER.24H PO SCH (11:06)
[2016-11-20] MEDS ORDERED: ceFAZolin 1,000 MG in DEXTROSE/WATER 1 50ML.BAG IVPB ONE (11:15)
--- NOTE | 2016-11-20 12:01 | P.PN ---
Subjective Principal diagnosis: CAD This is a pleasant 61-year-old gentleman with a past medical history significant for coronary artery disease and prior CABG with unknown details at this point and the patient does not follow up with any mop maker, stroke with residual right sided weakness as well as aphasia, hypertension, and dyslipidemia, was brought from [facility] to [facility] with epigastric discomfort. Apparently the patient was in his usual state of health until about a few days ago when he started experiencing sudden onset of epigastric discomfort. He denies having any chest pain or discomfort and denies having any shortness of breath. Please note that the patient is nonverbal but I was able to communicate with him with a question where he can answer yes or no for it. We get involved in the care of the patient because of his prior cardiac history of coronary artery disease. Hemodynamically the patient continues to be in marginally low blood pressure. He was receiving metoprolol which was held. He underwent a computed tomography scan of the abdomen and pelvis and that showed a gallstone. Gen. surgery consult was placed and the patient was seen and evaluated. The plan is a patient going to have surgery tomorrow. The patient underwent cholecystectomy earlier today. From the cardiovascular standpoint of view, the patient can be discharged home. He needs to be restarted back on aspirin once it's safe from the surgical standpoint overview. Objective - Vital Signs Vital signs: Vital Signs Temp 97.5 F L 11/20/16 09:50 Pulse 56 L 11/20/16 09:50 Resp 16 11/20/16 09:50 BP 120/58 11/20/16 09:50 Pulse Ox 94 L 11/20/16 09:30 Intake & Output 11/19/16 11/20/16 11/20/16 18:59 06:59 18:59 Intake Total 320 340 900 Output Total 5 Balance 320 340 895 Intake: IV 100 900 Oral 320 240 Output: Estimated Blood Loss 5 Other: Voiding Method Toilet # Voids 3 1 - Constitutional General appearance: Present: no acute distress - Labs CBC & Chem 7: 11/17/16 10:31 11/17/16 10:31 Assessment and Plan Plan: Assessment #1 epigastric discomfort #2 possible gallstone #3 CAD with prior CABG #4 history of stroke Plan #1 continue the current medical treatment was metoprolol and statin #2 the patient can be discharged home.
[2016-11-20] MEDS ORDERED: ceFAZolin 2 GM in SODIUM CHLORIDE 0.9% 100 ML IVPB SCH (16:00)
--- NOTE | 2016-11-21 15:28 | P.PN ---
Subjective Principal diagnosis: Gallstone pancreatitis Please see nurse practitioner's note, Erna Oropeza for additional details. No abdominal pain on exam. Cardiology note appreciated. He is tolerating diet. Objective - Vital Signs Vital signs: Vital Signs Temp 97.5 F L 11/20/16 09:50 Pulse 56 L 11/20/16 09:50 Resp 16 11/20/16 09:50 BP 120/58 11/20/16 09:50 Pulse Ox 94 L 11/20/16 09:30 Intake & Output 11/20/16 11/21/16 11/21/16 18:59 06:59 18:59 Intake Total 975 Output Total 5 Balance 970 Intake: IV 900 Oral 75 Output: Estimated Blood Loss 5 Other: Voiding Method Toilet # Voids 1 - Exam GENERAL: Well developed and in no acute distress. Pleasant. HEENT: No sclera icterus. Extraocular movements grossly intact. Moist buccal mucosa. Head is atraumatic, normocephalic. Hears conversational speech. No nasal drainage. NECK: Supple without lymphadenopathy. No JV distention. CHEST: Non-labored respirations and equal bilateral excursions. CARDIOVASCULAR: Regular rate and rhythm. Palpable 2+ radial pulses. ABDOMEN: Soft, nontender. Nondistended. MUSCULOSKELETAL: No clubbing, cyanosis or edema. NEUROLOGIC: No focal or lateralizing signs. He is aphasic. Right upper arm weakness. PSYCH: Appropriate affect. 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 He has obtained cardiac risk assessment. Additionally, he will completed at least 5 days of Plavix. 2. Recommend laparoscopic cholecystectomy and possible open technique for Wednesday. Benefits and risks of bleeding, infection, injury to the biliary tree was reviewed. 3. Nothing by mouth after midnight. 4. DVT prophylaxis. 5. Antibiotic prophylaxis. 6. May resume antiplatelet therapy 24 hours after operation.
--- NOTE | 2016-11-21 15:38 | P.DS ---
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 Gallstone pancreatitis 2. History of stroke with sequelae of the fascia. 3. Carotid artery stenosis. 4. Coronary artery disease status post coronary artery bypass grafting. 5. Hypertensive cardiomyopathy. COURSE: The patient is a 61-year-old male who presents with gallstone pancreatitis. Surgical intervention with a laparoscopic cholecystectomy was described at length including injury to the biliary tree, bleeding, infection, need for further surgery. Informed consent was obtained. Cardiology consultation was obtained. Carotid ultrasound and echo was obtained demonstrating sustained ejection fraction. Postoperatively, he was tolerating diet. His pain was well-controlled. Follow- up in the office within 5 days advised. Pertinent Studies: US and CT of the abdomen from outside institution reviewed consistent with multiple gallstones and pancreatitis. Procedures: OPERATION: Laparoscopic cholecystectomy Patient Condition at Discharge: Stable Plan - Discharge Summary New Discharge Prescriptions: HYDROcodone/APAP 5-325MG [[place] 5-325] 1 - 2 tab PO Q6HR PRN #30 tab PRN Reason: Pain Discharge Medication List Aspirin 81 mg PO DAILY 11/16/16 [History] Atorvastatin Calcium [Lipitor] 40 mg PO HS 11/16/16 [History] Citalopram Hydrobromide [CeleXA] 10 mg PO DAILY 11/16/16 [History] Clopidogrel Bisulfate [Plavix] 75 mg PO DAILY 11/16/16 [History] Hydrochlorothiazide 25 mg PO DAILY 11/16/16 [History] Metoprolol Succinate (ER) [Toprol Xl] 25 mg PO DAILY 11/16/16 [History] levETIRAcetam [Keppra] 500 mg PO Q12HR 11/16/16 [History] HYDROcodone/APAP 5-325MG [[place] 5-325] 1 - 2 tab PO Q6HR PRN #30 tab 11/20/16 [ Rx] Follow up Appointment(s)/Referral(s): Noel Garcia MD [Primary Care Provider] - 1-2 days (Office currently closed, please call for appointment. ) Patient Instructions/Handouts: Laparoscopic Cholecystectomy (DC), Low Fat Diet (GEN) Activity/Diet/Wound Care/Special Instructions: Low fat diet. Do not lift over 4 lbs or 1/2 gallon of milk. May shower tomorrow and resume medications tomorrow of Plavix and Aspirin. Discharge Disposition: HOME SELF-CARE
== END 2016-11-20 14:26 | disposition home or self-care (01) | DRG 418 ==
LOC: EC 09:49 → 4MS4W 11:10
PROVIDERS: ADMIT Surgery Plastic and Reconstructive Surgery; ATTEND Surgery Plastic and Reconstructive Surgery
PROC: 0FT44ZZ Resection of Gallbladder, Percutaneous Endoscopic Approach (ICD-10-PCS; principal; 2016-11-16)
DX: K85.10 Biliary acute pancreatitis without necrosis or infection (principal); I50.22 Chronic systolic (congestive) heart failure; I11.0 Hypertensive heart disease with heart failure; K80.12 Calculus of gallbladder with acute and chronic cholecystitis without obstruction; E87.6 Hypokalemia; G40.909 Epilepsy, unspecified, not intractable, without status epilepticus; I25.10 Atherosclerotic heart disease of native coronary artery without angina pectoris; I25.2 Old myocardial infarction; I65.29 Occlusion and stenosis of unspecified carotid artery; I69.320 Aphasia following cerebral infarction; K40.90 Unilateral inguinal hernia, without obstruction or gangrene, not specified as recurrent; K57.30 Diverticulosis of large intestine without perforation or abscess without bleeding; Z79.02 Long term (current) use of antithrombotics/antiplatelets; Z79.82 Long term (current) use of aspirin; Z82.49 Family history of ischemic heart disease and other diseases of the circulatory system; Z87.891 Personal history of nicotine dependence; Z95.1 Presence of aortocoronary bypass graft
CPT/HCPCS: 36415; 80053; 81003; 82150; 82550; 82553; 83605; 83690; 84484; 85025; 85610; 85730; 87086; 88304; 93005; 93306; 93880; 96361; 96374; 99285

== ENCOUNTER 2023-04-04 15:54 | Observation (INO) | payer BC, MEDICARE, OTHER ==
--- NOTE | 2023-04-04 17:20 | ED ---
General Adult HPI - General Chief complaint: Extremity Injury, Lower Stated complaint: Leg pain Time Seen by Provider: 04/04/23 16:24 Source: patient, family Mode of arrival: wheelchair - History of Present Illness Initial comments: 67-year-old male presenting with chief complaint of left lower leg pain. Patient resides in [place] and was recently discharged from [facility], he was brought to this area to stay with family while he is recovering. Patient had CVA in February as well as a perforated bowel and colostomy in March. He is able to follow commands and understands questions, has difficulty expressing answers. Family states that he is unable to walk on the leg due to the severe pain. No chest pain, difficulty breathing, fever, chills, cough, congestion, so re throat, abdominal pain, nausea, vomiting. - Related Data Home Medications Medication Instructions Recorded Confirmed Aspirin 81 mg PO DAILY 11/16/16 04/04/23 Citalopram Hydrobromide [CeleXA] 10 mg PO DAILY 11/16/16 04/04/23 Acetaminophen Tab [Tylenol] 650 mg PO Q6HR PRN 04/04/23 04/04/23 Cyanocobalamin (Vitamin B-12) 1,000 mcg PO DAILY 04/04/23 04/04/23 [Vitamin B-12] Enoxaparin [Lovenox] 40 mg SQ DAILY 04/04/23 04/04/23 Ferrous Sulfate [Feosol] 325 mg PO DAILY 04/04/23 04/04/23 Folic Acid 1 mg PO DAILY 04/04/23 04/04/23 Gabapentin [Neurontin] 100 mg PO TID 04/04/23 04/04/23 Melatonin 3 mg PO HS 04/04/23 04/04/23 Metoprolol Tartrate [Lopressor] 25 mg PO DAILY 04/04/23 04/04/23 Pantoprazole [Protonix] 40 mg PO AC-[id number] 04/04/23 04/04/23 levETIRAcetam [Keppra] 750 mg PO BID 04/04/23 04/04/23 Allergies Allergy/AdvReac Type Severity Reaction Status Date / Time No Known Allergies Allergy Verified 04/04/23 21:42 Review of Systems ROS Statement: Those systems with pertinent positive or pertinent negative responses have been documented in the HPI. ROS Other: All systems not noted in ROS Statement are negative. Past Medical History Past Medical History: CVA/TIA, Hypertension, Seizure Disorder Additional Past Medical History / Comment(s): 2013 CVA-able to speak very little, R arm weakness, minimal R leg weakness, bilateral caratid dx with bilateral stents, last seizure 4 months ago, Last Myocardial Infarction Date:: ?2003 History of Any Multi-Drug Resistant Organisms: None Reported Past Surgical History: Coronary Bypass/CABG, Tonsillectomy Additional Past Surgical History / Comment(s): open heart surgery 12 years. stents. colostomy 2022 Past Anesthesia/Blood Transfusion Reactions: No Reported Reaction Past Psychological History: No Psychological Hx Reported Past Alcohol Use History: None Reported Past Drug Use History: None Reported - Past Family History Father Family Medical History: Hyperlipidemia, Hypertension, Osteoarthritis (OA) Additional Family Medical History / Comment(s): Father is 87yrs old. Mother Family Medical History: Asthma, Diabetes Mellitus, Hyperlipidemia General Exam Limitations: language barrier General appearance: alert, in no apparent distress Head exam: Present: atraumatic, normocephalic, normal inspection Eye exam: Present: normal appearance, EOMI. Absent: scleral icterus Neck exam: Present: normal inspection, full ROM Respiratory exam: Present: normal lung sounds bilaterally. Absent: respiratory distress, wheezes, rales, rhonchi, stridor Cardiovascular Exam: Present: regular rate, normal rhythm, normal heart sounds. Absent: systolic murmur, diastolic murmur, rubs, gallop, clicks Left Lower Leg exam: Present: normal inspection, tenderness. Absent: swelling Neurological exam: Present: alert, oriented X3 Psychiatric exam: Present: normal affect, normal mood Skin exam: Present: warm, dry, intact, normal color. Absent: rash Course Vital Signs 04/04/23 04/04/23 04/04/23 15:56 17:14 18:47 Temperature 98.8 F 98.9 F Pulse Rate 77 68 62 Respiratory 18 18 17 Rate Blood Pressure 133/91 101/49 135/61 O2 Sat by Pulse 100 99 99 Oximetry 04/04/23 04/04/23 04/04/23 20:12 21:20 22:16 Temperature 98.5 F Pulse Rate 61 69 64 Respiratory 16 18 16 Rate Blood Pressure 125/73 120/70 113/64 O2 Sat by Pulse 100 95 98 Oximetry 04/04/23 04/05/23 23:11 00:13 Temperature 98.5 F Pulse Rate 67 74 Respiratory 17 18 Rate Blood Pressure 127/70 108/64 O2 Sat by Pulse 95 96 Oximetry Medical Decision Making - Medical Decision Making Was pt. sent in by a medical professional or institution (, MELISSA, [facility]AD[facility] RAKER, urgent care, hospital, or fdc...) When possible be specific @ -No Did you speak to anyone other than the patient for history (EMS, parent, family, police, friend...)? What history was obtained from this source @ -Spoke to family at bedside Did you review nursing and triage notes (agree or disagree)? Why? @ -I reviewed and agree with nursing and triage notes Were old charts reviewed (outside hosp., previous admission, EMS record, old EKG, old radiological studies, urgent care reports/EKG's, fdc records)? Report findings @ -No old charts were reviewed Differential Diagnosis (chest pain, altered mental status, abdominal pain women, abdominal pain men, vaginal bleeding, weakness, fever, dyspnea, syncope, headache, dizziness, GI bleed, back pain, seizure, CVA, palpatations, mental health, musculoskeletal)? @ -Differential Musculoskeletal Muscular strain, contusion, ligament sprain, fracture, arthritis, septic arthritis, bursitis, cellulitis, muscle spasm, nerve compression, DVT, arterial occlusion, herpes zoster, electrolyte abnormality, tumor.... This is not meant to be in all inclusive list EKG interpreted by me (3pts min.). @ -As above X-rays interpreted by me (1pt min.). @ -None done CT interpreted by me (1pt min.). @ -CT angiography shows no evidence of vascular occlusion, aneurysm dilation, or dissection U/S interpreted by me (1pt. min.). @ -Ultrasound negative for DVT What testing was considered but not performed or refused? (CT, X-rays, U/S, labs)? Why? @ -None What meds were considered but not given or refused? Why? @ -None Did you discuss the management of the patient with other professionals (professionals i.e. MELISSA Marrufo, MACADAM RAKER, lab, RT, psych nurse, high school social science teacher, project admin, teacher, branch officer, correctional case manager)? Give summary @ -Spoke with Dr. Gallardo accepted admission Was smoking cessation discussed for >3mins.? @ -No Was critical care preformed (if so, how long)? @ -No Were there social determinants of health that impacted care today? How? (Homelessness, low income, unemployed, alcoholism, drug addiction, transportation, low edu. Level, literacy, decrease access to med. care, alf, rehab)? @ -No Was there de-escalation of care discussed even if they declined (Discuss DNR or withdrawal of care, Hospice)? DNR status @ -No What co-morbidities impacted this encounter? (DM, HTN, Smoking, COPD, CAD, Cancer, CVA, ARF, Chemo, Hep., AIDS, mental health diagnosis, sleep apnea, morbid obesity)? @ -Deficit from previous CVA Was patient admitted / discharged? Hospital course, mention meds given and route, prescriptions, significant lab abnormalities, going to OR and other pertinent info. @ -Admitted. 67-year-old male presenting with family with chief complaint of left flank pain. Family states he was recently discharged from subacute rehab due to his insurance running out. He has been brought to the area from [place] in order for family take care of him, however they're concerned as the patient can not stand and walk, they are uncertain if they can take care of him at home. On physical examination one plus pulses bilaterally. WBC 12.1, urine shows evidence of UTI. Negative ultrasound and CT angiogram. Patient will be admitted for UTI and generalized weakness with plan for placement to long-term care facility. Patient agreeable with this plan I discussed case with my attending Dr. Suero Undiagnosed new problem with uncertain prognosis? @ -No Drug Therapy requiring intensive monitoring for toxicity (Heparin, Nitro, Insulin, Cardizem)? @ -No Were any procedures done? @ -No Diagnosis/symptom? @ -UTI and generalized weakness Acute, or Chronic, or Acute on Chronic? @ -acute Uncomplicated (without systemic symptoms) or Complicated (systemic symptoms)? @ -Complicated Side effects of treatment? @ -No Exacerbation, Progression, or Severe Exacerbation? @ -No Poses a threat to life or bodily function? How? (Chest pain, USA, NV, pneumonia, PE, COPD, DKA, ARF, appy, cholecystitis, CVA, Diverticulitis, Homicidal, Suicidal, threat to staff... and all critical care pts) @ -Yes - Lab Data Result diagrams: 04/04/23 18:41 04/04/23 18:41 Lab Results 04/04/23 04/04/23 04/04/23 Range/Units 18:41 18:41 18:41 WBC 12.1 H (3.8-10.6) k/uL RBC 4.00 L (4.30-5.90) m/uL Hgb 12.2 L (13.0-17.5) gm/dL Hct 38.0 L (39.0-53.0) % MCV 94.9 (80.0-100.0) fL MCH 30.6 (25.0-35.0) pg MCHC 32.3 (31.0-37.0) g/dL RDW 17.3 H (11.5-15.5) % Plt Count 338 (150-450) k/uL MPV 6.8 Neutrophils % 71 % Lymphocytes % 18 % Monocytes % 5 % Eosinophils % 5 % Basophils % 0 % Neutrophils # 8.5 H (1.3-7.7) k/uL Lymphocytes # 2.1 (1.0-4.8) k/uL Monocytes # 0.6 (0-1.0) k/uL Eosinophils # 0.6 (0-0.7) k/uL Basophils # 0.0 (0-0.2) k/uL Anisocytosis Slight Sodium 139 (137-145) mmol/L Potassium 4.0 (3.5-5.1) mmol/L Chloride 106 (98-107) mmol/L Carbon Dioxide 24 (22-30) mmol/L Anion Gap 9 mmol/L BUN 13 (9-20) mg/dL Creatinine 0.67 (0.66-1.25) mg/dL Est GFR (CKD-EPI)AfAm >90 (>60 ml/min/1.73 sqM) Est GFR (CKD-EPI)NonAf >90 (>60 ml/min/1.73 sqM) Glucose 95 (74-99) mg/dL Calcium 8.9 (8.4-10.2) mg/dL Total Bilirubin 0.5 (0.2-1.3) mg/dL AST 19 (17-59) U/L ALT 16 (4-49) U/L Alkaline Phosphatase 127 H (38-126) U/L Total Protein 6.9 (6.3-8.2) g/dL Albumin 3.5 (3.5-5.0) g/dL Urine Color Yellow Urine Appearance Cloudy (Clear) Urine pH 5.0 (5.0-8.0) Ur Specific [place] >1.050 H (1.001-1.035) Urine Protein Trace H (Negative) Urine Glucose (UA) Negative (Negative) Urine Ketones Negative (Negative) Urine Blood Negative (Negative) Urine Nitrite Positive (Negative) Urine Bilirubin Negative (Negative) Urine Urobilinogen <2.0 (<2.0) mg/dL Ur Leukocyte Esterase Large H (Negative) Urine RBC 13 H (0-5) /hpf Urine WBC 92 H (0-5) /hpf Urine Bacteria Few H (None) /hpf Urine Mucus Moderate H (None) /hpf Disposition Clinical Impression: UTI (urinary tract infection), Weakness Disposition: ADMITTED IP TO THIS HOSP Condition: Fair Time of Disposition: 21:05
--- NOTE | 2023-04-04 18:03 | US ---
EXAMINATION TYPE: US venous doppler duplex LE LT DATE OF EXAM: 04/04/2023 5:07 PM COMPARISON: NONE CLINICAL INDICATION: Male, 67 years old with history of cramping; Cramping. Patient takes aspirin. SIDE PERFORMED: Left TECHNIQUE: The lower extremity deep venous system is examined utilizing real time linear array sonog caren with graded compression, doppler sonography and color-flow sonography. VESSELS IMAGED: Common Femoral Vein Deep Femoral Vein Greater Saphenous Vein * Femoral Vein Popliteal Vein Small Saphenous Vein * Proximal Calf Veins (* superficial vessels) Left Leg: No evidence of DVT. Duplicate distal popliteal vein noted. IMPRESSION: No evidence for deep vein to most of the left lower extremity.
[2023-04-04 18:54] LABS: Anisocytosis Slight; Basophils % (A) 0 %; Eosinophils # (A) 0.6 k/uL (0-0.7); Eosinophils % (A) 5 %; HGB 12.2 gm/dL (13.0-17.5); Lymphocytes # (A) 2.1 k/uL (1.0-4.8); Lymphocytes % (A) 18 %; MCH 30.6 pg (25.0-35.0); MCHC 32.3 g/dL (31.0-37.0); MCV 94.9 fL (80.0-100.0); Mean Platelet Volume 6.8; Monocytes # (A) 0.6 k/uL (0-1.0); Monocytes % (A) 5 %; Neutrophils # (A) 8.5 k/uL (1.3-7.7); Neutrophils % (A) 71 %; Platelet Count 338 k/uL (150-450); RDW 17.3 % (11.5-15.5); WBC 12.1 k/uL (3.8-10.6)
[2023-04-04 19:06] LABS: ALT 16 U/L (4-49); AST 19 U/L (17-59); African American GFR (CKD) >90 (>60 ml/min/1.73 sqM); Albumin 3.5 g/dL (3.5-5.0); Alkaline Phosphatase 127 U/L (38-126); Anion Gap 9 mmol/L; Blood Urea Nitrogen 13 mg/dL (9-20); Calcium 8.9 mg/dL (8.4-10.2); Carbon Dioxide 24 mmol/L (22-30); Chloride 106 mmol/L (98-107); Glucose 95 mg/dL (74-99); Non-African American GFR(CKD) >90 (>60 ml/min/1.73 sqM); Sodium 139 mmol/L (137-145); Total Bilirubin 0.5 mg/dL (0.2-1.3); Total Protein 6.9 g/dL (6.3-8.2)
[2023-04-04 20:27] LABS: Appearance,Urine Cloudy (Clear); Bacteria,Urine Few /hpf; Bilirubin,Urine Negative (Negative); Blood,Urine Negative (Negative); Color,Urine Yellow; Glucose,Urine (UA) Negative (Negative); Ketones,Urine Negative (Negative); Leukocyte Esterase,Urine Large (Negative); Mucus,Urine Moderate /hpf; Nitrite,Urine Positive (Negative); Protein,Urine Trace (Negative); RBC,Urine 13 /hpf (0-5); Urobilinogen,Urine <2.0 mg/dL (<2.0); WBC,Urine 92 /hpf (0-5)
[2023-04-04 20:28] LABS: Specific Gravity,Urine >1.050 (1.001-1.035)
[2023-04-04] MEDS ORDERED: MORPHINE SULFATE 4 MG/ML SYRINGE IVP STA (20:31)
[2023-04-04] MEDS ORDERED: cefTRIAXone IN SWFI 1,000 MG/10 ML SYRINGE IVP STA (20:31)
--- NOTE | 2023-04-04 20:32 | CT ---
EXAMINATION TYPE: CT angio abd aorta w/Runoff CT DLP: 2636 mGycm, Automated exposure control for dose reduction was used. DATE OF EXAM: 04/04/2023 7:53 PM COMPARISON: CT outside 11/16/2016 CLINICAL INDICATION:Male, 67 years old with history of L leg pain; TECHNIQUE: Multiple thin slice sub-millimeter images were obtained through the abdomen, pelvis, and l ower extremities after administration of contrast. 3-D reconstructed images and maximum intensity pr ojection images were obtained of the abdomen, pelvis, and lower extremities. CT Contrast: Contrast used:100ML mL of Isovue 370 with IV Contrast, Oral contrast used: None FINDINGS: CTA Abdomen and pelvis: No evidence for intramural hematoma on noncontrast imaging. On postcontrast i maging there is scattered atherosclerotic disease both calcified and noncalcified. There is no eviden ce for aneurysmal dilation or intimal flap to suggest dissection. Celiac axis, superior mesenteric ar kaylee, bilateral renal arteries are patent. Inferior mesenteric artery is patent. The common iliac art eries are patent there is up to 25% stenosis of the right common iliac artery at its origin. The exte rnal iliac arteries are patent. There is scattered calcified and noncalcified plaque. The common femo ral arteries are patent. CTA Lower extremities: Right: The common femoral and superficial femoral arteries are patent. The popliteal artery is patent . Anterior tibial artery is diminutive in size. The posterior tibial artery is patent and crosses the ankle. Well as the peroneal artery are patent. Scattered atherosclerosis throughout the arterial vas culature with scattered areas of 25-50% stenosis. No high-grade stenosis visualized. Left: The common femoral and superficial femoral arteries are patent. The popliteal artery is patent. Anterior tibial artery is diminutive in size. The posterior tibial artery is patent and crosses the ankle. Well as the peroneal artery are patent. Scattered atherosclerosis throughout the arterial vasc ulature with scattered areas of 25-50% stenosis. No high-grade stenosis visualized. Right medial thig h surgical clip. LOWER CHEST: No evidence of focal consolidation, pneumothorax or pleural effusion. Atherosclerosis of the arterial vasculature including the coronary arteries. There is mildly enlarged for size. LIVER: Unremarkable GALLBLADDER AND BILE DUCTS: The gallbladder is surgically absent. PANCREAS: Unremarkable. SPLEEN: Unremarkable. ADRENAL GLANDS: Unremarkable. KIDNEYS AND URETERS: No evidence of hydronephrosis or renal calculus. The ureters are unremarkable. PELVIS BLADDER: Circumferential bladder wall thickening. REPRODUCTIVE: Unremarkable. ABDOMEN & PELVIS STOMACH AND BOWEL: No evidence of bowel obstruction. Right anterior abdominal wall colostomy. Postsur gical changes of the sigmoid colon with some mild fat stranding changes nearby. PERITONEUM: No evidence of pneumoperitoneum or free fluid. VASCULATURE: No evidence of aortic aneurysm. MUSCULOSKELETAL: No acute osseous abnormalities LYMPH NODES: No gross evidence for lymphadenopathy. SOFT TISSUE/ABDOMINAL WALL: Fat-containing umbilical hernia. Bilateral fat-containing inguinal hernia s. Right lower quadrant and ileostomy. IMPRESSION 1. No evidence of vascular occlusion, aneurysmal dilation or dissection.. 2. Atherosclerotic disease involving abdominal aorta and lower extremity vasculature with scattered areas of 25-50% stenosis throughout the vasculature. 3. The posterior tibial arteries cross the ankle bilaterally. The anterior tibial arteries are diminu tive and poorly visualized. 4. Postsurgical changes of the sigmoid colon with mild inflammation. Correlate for colitis.
[2023-04-04] MEDS ORDERED: NALOXONE 0.4 MG/ML 1 ML VIAL IV PRN (20:58)
[2023-04-05] MEDS ORDERED: ACETAMINOPHEN TAB 325 MG TAB PO PRN (00:32)
--- NOTE | 2023-04-05 00:32 | P.HPIM ---
History of Present Illness H&P Date: 04/04/23 Chief Complaint: generalized weakness 67 year old male with CVA back in February, and requiring colostomy in March , unknown cause. He was recently discharged from [facility] [place] to come and live with family recently, they brought him in today due to difficulty walking and pain in left thigh. patient is non verbal. but follow commands and answers with yes and no. he denies any chest pain or trouble breathing, denies any headache, he has contracture right upper extremity and unable to walk. recent colostomy unknown reason. workup in the ED showed UTI. no further history is obtainable at this time review of systems Pertinent positives as noted in HPI. All other systems were reviewed and are negative on physical exam Constitutional: No acute distress, aphasic Eyes: Anicteric sclerae, moist conjunctiva, Pupils equal round reactive to light ENMT: NC/AT Oropharynx clear, no erythema, or exudates Neck: Supple, no masses, or JVD No carotid bruits No thyromegaly Lungs: Clear to auscultation Clear to percussion Normal respiratory effort, no accessory muscle use Cardiovascular: Heart regular in rate and rhythm, No murmurs, gallops, or rubs No peripheral edema Abdominal: Soft Nontender, no guarding, rebound or rigidity Abdomen moving with respiration Normoactive bowel sounds right lower quadrant colostomy Skin: Normal temperature, tone, texture, turgor Extremities: contracture right upper extremity No digital cyanosis No clubbing Pedal pulses intact and symmetrical Radial pulses weak right side and absent left side , capillary refill immediate reports pain left thigh , no skin changes , no warmth to the touch No calf tenderness Psychiatric: Alert , follows commands Neuro Muscles Strength 4/5 left upper and right lower exttemity , right upper extremity with contractures, and left lower extremity 2/5 Sensation to light touch grossly present throughout Lymphatics: no palpable cervical or supraclavicular lymph nodes Past Medical History Past Medical History: CVA/TIA, Hypertension, Seizure Disorder Additional Past Medical History / Comment(s): 2013 CVA-able to speak very little, R arm weakness, minimal R leg weakness, bilateral caratid dx with bilateral stents, last seizure 4 months ago, Last Myocardial Infarction Date:: ?2003 History of Any Multi-Drug Resistant Organisms: None Reported Past Surgical History: Coronary Bypass/CABG, Tonsillectomy Additional Past Surgical History / Comment(s): open heart surgery 12 years. stents. colostomy 2022 Past Anesthesia/Blood Transfusion Reactions: No Reported Reaction Past Psychological History: No Psychological Hx Reported Past Alcohol Use History: None Reported Past Drug Use History: None Reported - Past Family History Father Family Medical History: Hyperlipidemia, Hypertension, Osteoarthritis (OA) Additional Family Medical History / Comment(s): Father is 87yrs old. Mother Family Medical History: Asthma, Diabetes Mellitus, Hyperlipidemia Medications and Allergies Home Medications Medication Instructions Recorded Confirmed Type Aspirin 81 mg PO DAILY 11/16/16 04/04/23 History Citalopram Hydrobromide [CeleXA] 10 mg PO DAILY 11/16/16 04/04/23 History Acetaminophen Tab [Tylenol] 650 mg PO Q6HR PRN 04/04/23 04/04/23 History Cyanocobalamin (Vitamin B-12) 1,000 mcg PO DAILY 04/04/23 04/04/23 History [Vitamin B-12] Enoxaparin [Lovenox] 40 mg SQ DAILY 04/04/23 04/04/23 History Ferrous Sulfate [Feosol] 325 mg PO DAILY 04/04/23 04/04/23 History Folic Acid 1 mg PO DAILY 04/04/23 04/04/23 History Gabapentin [Neurontin] 100 mg PO TID 04/04/23 04/04/23 History Melatonin 3 mg PO HS 04/04/23 04/04/23 History Metoprolol Tartrate [Lopressor] 25 mg PO DAILY 04/04/23 04/04/23 History Pantoprazole [Protonix] 40 mg PO AC-BRKFST 04/04/23 04/04/23 History levETIRAcetam [Keppra] 750 mg PO BID 04/04/23 04/04/23 History Allergies Allergy/AdvReac Type Severity Reaction Status Date / Time No Known Allergies Allergy Verified 04/04/23 21:42 Physical Exam Vitals: Vital Signs Temp Pulse Resp BP Pulse Ox 04/04/23 20:12 61 16 125/73 100 04/04/23 18:47 98.9 F 62 17 135/61 99 04/04/23 17:14 68 18 101/49 99 04/04/23 15:56 98.8 F 77 18 133/91 100 Intake and Output 04/04/23 04/04/23 04/04/23 06:59 14:59 22:59 Other: Weight 81.647 kg Results CBC & Chem 7: 04/04/23 18:41 04/04/23 18:41 Labs: Abnormal Lab Results - Last 24 Hours (Table) 04/04/23 04/04/23 04/04/23 Range/Units 18:41 18:41 18:41 WBC 12.1 H (3.8-10.6) k/uL RBC 4.00 L (4.30-5.90) m/uL Hgb 12.2 L (13.0-17.5) gm/dL Hct 38.0 L (39.0-53.0) % RDW 17.3 H (11.5-15.5) % Neutrophils # 8.5 H (1.3-7.7) k/uL Alkaline Phosphatase 127 H (38-126) U/L Ur Specific [place] >1.050 H (1.001-1.035) Urine Protein Trace H (Negative) Ur Leukocyte Esterase Large H (Negative) Urine RBC 13 H (0-5) /hpf Urine WBC 92 H (0-5) /hpf Urine Bacteria Few H (None) /hpf Urine Mucus Moderate H (None) /hpf Assessment and Plan Assessment: 67 year old male with CVA , aphasic, coming in for generalized weakness, I discussed the case with ED doc , UTI suspected, I accepted the admission for further evaluation and treatment with IV antibiotics and PT eval with anticipated length of stay < 2 midnights UTI rocephine 1 gm IVPB daily follow up cultures tylenol for fever fall precautions PT eval venous doppler of the lower extremity no DVT CTA of the abd and lower extremity showed plaques of 25-50%, colostomy care WBC 12 elevated secondary to UTI Hgb 12.2 denies any bleeding unknown why he got colostomy UA positive for nitrite renal fucntion unremarkable with BUN 13 , cr 0.67 pain left leg, no clear cause. pain control code status DNR DVT PPX heparin sc tid
[2023-04-05] MEDS: MORPHINE SULFATE 4 MG/ML SYRINGE IV PRN ×3 (03:35→20:53)
[2023-04-05] MEDS: HYDROcodone/APAP 5-325MG 1 EACH TAB PO PRN ×2 (05:55→17:39)
[2023-04-05] MEDS: PANTOPRAZOLE 40 MG TABLET PO SCH (07:32)
[2023-04-05] MEDS: ASPIRIN 81 MG PO SCH (09:02)
[2023-04-05] MEDS: GABAPENTIN 100 MG CAP PO SCH ×3 (09:02→20:19)
[2023-04-05] MEDS: METOPROLOL TARTRATE 25 MG TAB PO SCH (09:02)
[2023-04-05] MEDS: ENOXAPARIN 40 MG/0.4 ML SYRINGE SQ SCH (09:03)
--- NOTE | 2023-04-05 14:51 | P.PN ---
Subjective Progress Note Date: 04/05/23 Patient is a 67-year-old male with PMH of CVA with right-sided weakness, hypertension, seizure disorder, CAD post CABG, history of perforated bowel with colostomy presents to the ED for failure to thrive and inability to take care of his ADLs and IADLs. Apparently, patient has recently been discharged from SNF, has been living with family where they realized he is too weak to manage at home. In the ED, his vital signs are stable. CBC shows leukocytosis of 12.1 and hemoglobin of 12.2. CMP shows alkaline phosphatase 127. Urinalysis shows large leukocyte esterase. Patient is admitted for further management and workup of symptoms 04/05 Patient was seen and examined. No acute events overnight. Patient able to nod and give 1 word answers to questions. He appears comfortable. He does not have any complaints. General: non toxic, no distress, appears at stated age Derm: warm, dry Head: atraumatic, normocephalic, symmetric Eyes: EOMI, no lid lag, anicteric sclera Cardiovascular: S1S2 reg, no murmur Lungs: CTA bilateral, no rhonchi, no rales , no accessory muscle use Abdominal: soft, nontender to palpation, no guarding, no appreciable organomegaly Ext: no gross muscle atrophy, no edema, no contractures Neuro: RUE contractured. RLE 2/5 strength, LUE and LLE 4/5 strength. Sensation intact to touch Psych: Unable to determine Urinary tract infection Normocytic anemia Failure to thrive Chronic conditions: CVA with right-sided weakness, hypertension, seizure disorder, CAD post CABG, history of perforated bowel with colostomy Based on my assessment of this patient, this patient meets a moderate complexity level of care. Patient has UTI. He is being admitted for failure to thrive and inability to take care of his ADLs and IADLs. Case management is onboard. Continue Rocephin 1 g IV daily. Follow urine culture. Follow blood culture. Fall precautions. Lovenox SQ for DVT prophylaxis. NO CODE. I have reviewed the following application support consultant notes: I have reviewed the results of the following tests: I have ordered the following tests: I have discussed the care of this patient with the following independent historian: The case was discussed extensively with case management. I have independently interpreted the following test below: I have discussed the management of this patient with the following physician: Objective - Vital Signs Vital signs: Vital Signs Temp 98.0 F 04/05/23 13:05 Pulse 61 04/05/23 13:05 Resp 17 04/05/23 13:05 BP 108/55 04/05/23 13:05 Pulse Ox 99 04/05/23 13:05 FiO2 Intake & Output 04/04/23 04/05/23 04/05/23 18:59 06:59 18:59 Output Total 200 Balance -200 Weight 81.647 kg 81.647 kg Output: Urine 200 Other: # Voids 1 1 - Labs CBC & Chem 7: 04/04/23 18:41 04/04/23 18:41 Labs: Abnormal Lab Results - Last 24 Hours (Table) 04/04/23 04/04/23 04/04/23 Range/Units 18:41 18:41 18:41 WBC 12.1 H (3.8-10.6) k/uL RBC 4.00 L (4.30-5.90) m/uL Hgb 12.2 L (13.0-17.5) gm/dL Hct 38.0 L (39.0-53.0) % RDW 17.3 H (11.5-15.5) % Neutrophils # 8.5 H (1.3-7.7) k/uL Alkaline Phosphatase 127 H (38-126) U/L Ur Specific [place] >1.050 H (1.001-1.035) Urine Protein Trace H (Negative) Ur Leukocyte Esterase Large H (Negative) Urine RBC 13 H (0-5) /hpf Urine WBC 92 H (0-5) /hpf Urine Bacteria Few H (None) /hpf Urine Mucus Moderate H (None) /hpf
[2023-04-05] MEDS: CITALOPRAM HYDROBROMIDE 10 MG TAB PO SCH (20:08)
[2023-04-06] MEDS: HYDROcodone/APAP 5-325MG 1 EACH TAB PO PRN ×3 (01:29→20:22)
[2023-04-06] MEDS: PANTOPRAZOLE 40 MG TABLET PO SCH (06:52)
[2023-04-06] MEDS: ASPIRIN 81 MG PO SCH (07:55)
[2023-04-06] MEDS: ENOXAPARIN 40 MG/0.4 ML SYRINGE SQ SCH (07:55)
[2023-04-06] MEDS: CITALOPRAM HYDROBROMIDE 10 MG TAB PO SCH (07:55)
[2023-04-06] MEDS: GABAPENTIN 100 MG CAP PO SCH ×3 (07:55→20:33)
[2023-04-06] MEDS: METOPROLOL TARTRATE 25 MG TAB PO SCH (07:55)
[2023-04-06] MEDS: MORPHINE SULFATE 4 MG/ML SYRINGE IV PRN ×2 (13:08→22:49)
--- NOTE | 2023-04-06 16:48 | P.PN ---
Subjective Progress Note Date: 04/06/23 Pt reports some improvement today in weakness. Gen: awake, alert HEENT: normocephalic, atraumatic, good hearing acuity, moist mucous membranes Resp: good air exchange, breathing comfortably with no accessory muscle use CVS: good distal perfusion x 4, GI: soft, NTTP, ND : no SPT, no CVAT, castillo catheter not present MSK: no pitting edema, no clubbing Neuro: non-focal, moving all extremities Psych: cooperative, euthymic mood Hospital course: Patient is a 67-year-old male with PMH of CVA with right-sided weakness, hypertension, seizure disorder, CAD post CABG, history of perforated bowel with colostomy presents to the ED for failure to thrive and inability to take care of his ADLs and IADLs. In the ED, his vital signs are stable. CBC shows leukocytosis of 12.1 and hemoglobin of 12.2. CMP shows alkaline phosphatase 127. Urinalysis shows large leukocyte esterase. Patient is admitted for further management and workup of symptoms Assessment: Urinary tract infection Normocytic anemia Failure to thrive Chronic conditions: CVA with right-sided weakness, hypertension, seizure disorder, CAD post CABG, history of perforated bowel with colostomy Plan: Today, patient is afebrile, 104/62, heart rate 55, 96% on room air Urine culture showing gram-negative bacilli Pending PT/OT consultation Continue ceftriaxone 1 g every 24 hours Patient is no code Objective - Vital Signs Vital signs: Vital Signs Temp 98.4 F 04/06/23 13:39 Pulse 55 L 04/06/23 13:39 Resp 17 04/06/23 13:39 BP 104/62 04/06/23 14:14 Pulse Ox 96 04/06/23 13:39 FiO2 Intake & Output 04/05/23 04/06/23 04/06/23 18:59 06:59 18:59 Intake Total 700 Output Total 700 2000 300 Balance 0 -2000 -300 Intake: Intake, IV Titration 50 Amount cefTRIAXone 1 gm In 50 Sodium Chloride 0.9% 50 ml @ 100 mls/hr IVPB Q24H [facility] Rx#:[id number] Oral 650 Output: Urine 500 1200 Stool 200 800 Urine/Stool Mix 300 Other: Voiding Method Urinal Urinal # Voids 4 # Bowel Movements 200 - Labs CBC & Chem 7: 04/04/23 18:41 04/04/23 18:41 Labs: Microbiology - Last 24 Hours (Table) 04/04/23 18:41 Urine Culture - Preliminary Urine,Voided Gram Neg Bacilli 04/04/23 20:00 Blood Culture - Preliminary Blood 04/04/23 20:15 Blood Culture - Preliminary Blood
[2023-04-07] MEDS: HYDROcodone/APAP 5-325MG 1 EACH TAB PO PRN ×3 (02:58→10:38)
[2023-04-07] MEDS: PANTOPRAZOLE 40 MG TABLET PO SCH (06:18)
[2023-04-07] MEDS: GABAPENTIN 100 MG CAP PO SCH ×2 (07:47→16:22)
[2023-04-07] MEDS: ENOXAPARIN 40 MG/0.4 ML SYRINGE SQ SCH (07:47)
[2023-04-07] MEDS: METOPROLOL TARTRATE 25 MG TAB PO SCH (07:47)
[2023-04-07] MEDS: ASPIRIN 81 MG PO SCH (07:47)
[2023-04-07] MEDS: CITALOPRAM HYDROBROMIDE 10 MG TAB PO SCH (07:47)
[2023-04-07 14:43] VITALS: BP 109/64; PULSE 97; RESP 20; TEMP 98.6
[2023-04-07] MEDS: MORPHINE SULFATE 4 MG/ML SYRINGE IV PRN (14:47)
--- NOTE | 2023-04-07 15:13 | P.DS ---
Providers Date of admission: 04/04/23 22:02 Expected date of discharge: 04/07/23 Attending physician: Gurpreet Gallardo MD Primary care physician: Stated None Hospital Course: Assessment: Urinary tract infection Normocytic anemia Failure to thrive Chronic conditions: CVA with right-sided weakness, hypertension, seizure disorder, CAD post CABG, history of perforated bowel with colostomy Hospital course: Patient is a 67-year-old male with PMH of CVA with right-sided weakness, hypertension, seizure disorder, CAD post CABG, history of perforated bowel with colostomy presents to the ED for failure to thrive and inability to take care of his ADLs and IADLs. In the ED, his vital signs are stable. CBC shows leukocytosis of 12.1 and hemoglobin of 12.2. CMP shows alkaline phosphatase 127. Urinalysis shows large leukocyte esterase. Patient was admitted for further management and workup of symptoms. Patient was started on treatment with ceftriaxone for urinary tract infection. He was evaluated by PT/OT and recommended for rehab given his generalized weakness. He was discharged to [facility] with an additional 4 days of antibiotics for a total of 7 days treatment for urinary tract infection that is complicated. Patient to follow-up with primary care physician. I spent 34 minutes coordinating this discharge on 04/07 Gen: awake, alert HEENT: normocephalic, atraumatic, good hearing acuity, moist mucous membranes Resp: good air exchange, breathing comfortably with no accessory muscle use CVS: good distal perfusion x 4, GI: soft, NTTP, ND : no SPT, no CVAT, castillo catheter not present MSK: no pitting edema, no clubbing Neuro: non-focal, moving all extremities Psych: cooperative, euthymic mood Patient Condition at Discharge: Good Plan - Discharge Summary Discharge Rx Participant: Yes New Discharge Prescriptions: New Cefdinir 300 mg PO Q12HR #8 cap Continue Citalopram Hydrobromide [CeleXA] 10 mg PO DAILY Aspirin 81 mg PO DAILY Pantoprazole [Protonix] 40 mg PO AC-BRKFST Folic Acid 1 mg PO DAILY Cyanocobalamin (Vitamin B-12) [Vitamin B-12] 1,000 mcg PO DAILY Gabapentin [Neurontin] 100 mg PO TID Melatonin 3 mg PO HS Enoxaparin [Lovenox] 40 mg SQ DAILY Ferrous Sulfate [Iron (65 MG Elemental)] 325 mg PO DAILY Acetaminophen Tab [Tylenol] 650 mg PO Q6HR PRN PRN Reason: Pain Or Fever > 100.5 levETIRAcetam [Keppra] 750 mg PO BID Metoprolol Tartrate [Lopressor] 25 mg PO DAILY Discharge Medication List Aspirin 81 mg PO DAILY 11/16/16 [History] Citalopram Hydrobromide [CeleXA] 10 mg PO DAILY 11/16/16 [History] Acetaminophen Tab [Tylenol] 650 mg PO Q6HR PRN 04/04/23 [History] Cyanocobalamin (Vitamin B-12) [Vitamin B-12] 1,000 mcg PO DAILY 04/04/23 [History] Enoxaparin [Lovenox] 40 mg SQ DAILY 04/04/23 [History] Ferrous Sulfate [Iron (65 MG Elemental)] 325 mg PO DAILY 04/04/23 [History] Folic Acid 1 mg PO DAILY 04/04/23 [History] Gabapentin [Neurontin] 100 mg PO TID 04/04/23 [History] Melatonin 3 mg PO HS 04/04/23 [History] Metoprolol Tartrate [Lopressor] 25 mg PO DAILY 04/04/23 [History] Pantoprazole [Protonix] 40 mg PO AC-BRKFST 04/04/23 [History] levETIRAcetam [Keppra] 750 mg PO BID 04/04/23 [History] Cefdinir 300 mg PO Q12HR #8 cap 04/07/23 [Rx] Follow up Appointment(s)/Referral(s): None,Stated [Primary Care Provider] - 1-2 days Discharge/Stand Alone Forms: Area PCPs Discharge Disposition: TRANSFER TO SNF/ECF
== END 2023-04-07 17:30 ==
LOC: EC 15:54 → 4SSUR 22:02 → INTOOBSV 22:02 → 4SSUR 04-05 05:06
PROVIDERS: ADMIT Internal Medicine; ATTEND Internal Medicine
DX: N39.0 Urinary tract infection, site not specified (principal); D64.9 Anemia, unspecified; R62.7 Adult failure to thrive; G40.909 Epilepsy, unspecified, not intractable, without status epilepticus; I69.351 Hemiplegia and hemiparesis following cerebral infarction affecting right dominant side; I25.2 Old myocardial infarction; I10 Essential (primary) hypertension; K42.9 Umbilical hernia without obstruction or gangrene; I25.10 Atherosclerotic heart disease of native coronary artery without angina pectoris; Z79.82 Long term (current) use of aspirin; Z93.3 Colostomy status; Z79.899 Other long term (current) drug therapy; Z95.5 Presence of coronary angioplasty implant and graft; Z95.1 Presence of aortocoronary bypass graft; Z82.49 Family history of ischemic heart disease and other diseases of the circulatory system; Z83.3 Family history of diabetes mellitus; Z82.5 Family history of asthma and other chronic lower respiratory diseases; Z82.61 Family history of arthritis; Z83.438 Family history of other disorder of lipoprotein metabolism and other lipidemia; Z66 Do not resuscitate
CPT/HCPCS: 96376 ×5; 96365; 96366; 96372 ×3; 96375; 99285; 36415; 97530 ×2; 97162; 97535; 97166; 80053; 85025; 81001; 87040; 87086; 87077; 87186; 93971; 75635; G0378 ×4; J2270 ×4; J1650 ×3; J0696 ×3; Q9967

== ENCOUNTER 2024-05-23 04:34 | Inpatient (IN) | payer MEDICARE, OTHER ==
[2024-05-23] MEDS ORDERED: ASPIRIN 81 MG ONE (10:09)
[2024-05-23] MEDS ORDERED: cefTRIAXone 2 GM VIAL ONE (10:10)
[2024-05-23] MEDS ORDERED: METOPROLOL TARTRATE 25 MG TAB ONE ×2 (10:10→20:37)
[2024-05-23] MEDS ORDERED: GABAPENTIN 100 MG CAP ONE ×2 (16:18→20:35)
[2024-05-24] MEDS ORDERED: IPRATROPIUM-ALBUTEROL 3 ML NEB ONE ×2 (03:14→18:45)
[2024-05-24] MEDS ORDERED: PANTOPRAZOLE 40 MG TABLET PO ONE (06:19)
[2024-05-24] MEDS ORDERED: HEPARIN SOD,PORK IN 0.45% NACL 250 ML IV ONE (06:37)
[2024-05-24] MEDS ORDERED: ASPIRIN 81 MG ONE (10:19)
[2024-05-24] MEDS ORDERED: CITALOPRAM HYDROBROMIDE 10 MG TAB PO ONE (10:20)
[2024-05-24] MEDS ORDERED: SENNOSIDES 8.6 MG TAB ONE (10:20)
[2024-05-24] MEDS ORDERED: METOPROLOL TARTRATE 25 MG TAB ONE ×2 (10:20→21:19)
[2024-05-24] MEDS ORDERED: GABAPENTIN 100 MG CAP ONE ×2 (10:20→21:19)
[2024-05-24] MEDS ORDERED: FERROUS SULFATE 325 MG TAB PO ONE (10:20)
[2024-05-24] MEDS ORDERED: LACTOBACILLUS ACIDOPHILUS/PECT 1 EACH CAPSULE PO ONE (10:20)
[2024-05-24] MEDS ORDERED: cefTRIAXone 2 GM VIAL ONE (10:21)
[2024-05-24] MEDS ORDERED: FUROSEMIDE 10 MG/ML 4 ML VIAL ONE (21:19)
[2024-05-24] MEDS ORDERED: SODIUM CHLORIDE 0.9% 50 ML BAG ONE (23:59)
[2024-05-24] MEDS ORDERED: SODIUM CHLORIDE 0.9% 250 ML BAG ONE (23:59)
[2024-05-24] MEDS ORDERED: AZITHROMYCIN 500 MG VIAL IVPB ONE (23:59)
[2024-05-25] MEDS ORDERED: PANTOPRAZOLE 40 MG TABLET PO ONE ×2 (06:05→08:57)
[2024-05-25] MEDS ORDERED: LOSARTAN 25 MG TAB ONE (08:56)
[2024-05-25] MEDS ORDERED: DAPAGLIFLOZIN PROPANEDIOL 10 MG TABLET ONE (08:57)
[2024-05-25] MEDS ORDERED: GABAPENTIN 100 MG CAP ONE (08:57)
[2024-05-25] MEDS ORDERED: FERROUS SULFATE 325 MG TAB PO ONE (08:58)
[2024-05-25] MEDS ORDERED: SENNOSIDES 8.6 MG TAB ONE (08:58)
[2024-05-25] MEDS ORDERED: ASPIRIN 81 MG ONE (08:59)
[2024-05-25] MEDS ORDERED: cefTRIAXone 2 GM VIAL ONE (09:01)
[2024-05-25] MEDS ORDERED: CITALOPRAM HYDROBROMIDE 10 MG TAB PO ONE (09:01)
[2024-05-25] MEDS ORDERED: AZITHROMYCIN 500 MG VIAL IVPB ONE (12:00)
[2024-05-25] MEDS ORDERED: SODIUM CHLORIDE 0.9% 50 ML BAG ONE (12:00)
[2024-05-25] MEDS ORDERED: SODIUM CHLORIDE 0.9% 250 ML BAG ONE (12:00)
--- NOTE | 2024-06-27 09:29 | CA ---
Transthoracic Echo Report Name: Mac Chow Age: 68 Gender: O : 1955 Exam Date: 05/24/2024 09:36 Exam Location: [facility] Ht (in): 64 Wt (lb): 180 Ordering Physician: Attending/Referring Phys: Email Operations Manager Najma Lay RDCS Procedure CPT: Indications: Cardiac Hx: Technical Quality: Good Contrast 1: Definity Total Dose (mL): 2 Contrast 2: Total Dose (mL): MEASUREMENTS (Male / Female) Normal Values 2D ECHO LV Diastolic Diameter PLAX 5.1 cm 4.2 - 5.9 / 3.9 - 5.3 cm LV Systolic Diameter PLAX 4.5 cm IVS Diastolic Thickness 1.4 cm 0.6 - 1.0 / 0.6 - 0.9 cm LVPW Diastolic Thickness 1.4 cm 0.6 - 1.0 / 0.6 - 0.9 cm LV Relative Wall Thickness 0.6 RV Internal Dim ED PLAX 2.9 cm LA Systolic Diameter LX 4.6 cm 3.0 - 4.0 / 2.7 - 3.8 cm M-MODE Aortic Root Diameter MM 3.7 cm LA Systolic Diameter MM 5.3 cm LA Ao Ratio MM 1.4 AV Cusp Separation MM 2.2 cm DOPPLER TR Peak Velocity 314.3 cm/s TR Peak Gradient 39.5 mmHg Right Ventricular Systolic Press 49.8 mmHg FINDINGS Left Ventricle Left ventricular ejection fraction is estimated at 15-20%. Moderately increased septal wall thickness. Severely reduced global left ventricular systolic function. Left ventricular cavity size normal. Right Ventricle Mild right ventricular dilatation. Moderate pulmonary hypertension. Right Atrium Mild right atrial dilatation. Left Atrium Mildly increased left atrial diameter. Mitral Valve Structurally normal mitral valve. Mitral valve thickened. Mitral annular calcification. Moderate mitral regurgitation. Aortic Valve Trileaflet aortic valve. Trace aortic regurgitation. No aortic stenosis. Tricuspid Valve Structurally normal tricuspid valve. Mild tricuspid regurgitation. Pulmonic Valve Structurally normal pulmonic valve. Trace pulmonic regurgitation. Pericardium No pericardial or pleural effusion. Aorta Aorta at upper limits of normal. CONCLUSIONS Left ventricular ejection fraction is estimated at 15-20%. Severely reduced LV global systolic function Hypokinetic anterior and anteroseptal wall Moderate pulmonary hypertension. RVSP 50 mmHg Moderate mitral regurgitation Mild left atrial dilatation dilatation Previewed by: Dr Davis Cheng (Electronically Signed) Final Date: 24 May 2024 17:15
== END 2024-05-25 14:35 | DRG 291 ==
LOC: UNDOADMIN 04:34 → 3SCARD 04:34 → 3NCARDOBS 04:34 → UNDODISIN 04:34
PROVIDERS: ADMIT Anesthesiology; ATTEND Anesthesiology
DX: I11.0 Hypertensive heart disease with heart failure (principal); I50.23 Acute on chronic systolic (congestive) heart failure; J15.9 Unspecified bacterial pneumonia; J96.01 Acute respiratory failure with hypoxia; I69.351 Hemiplegia and hemiparesis following cerebral infarction affecting right dominant side; Z66 Do not resuscitate; I25.2 Old myocardial infarction; G40.909 Epilepsy, unspecified, not intractable, without status epilepticus; I25.10 Atherosclerotic heart disease of native coronary artery without angina pectoris; R31.9 Hematuria, unspecified; I44.7 Left bundle-branch block, unspecified; I69.320 Aphasia following cerebral infarction; Z79.82 Long term (current) use of aspirin; Z79.899 Other long term (current) drug therapy
CPT/HCPCS: 93306; 94640; 99291